=== PATIENT | female | born 1955 | race Caucasian/White ===

== ENCOUNTER 2020-10-28 00:19 | Outpatient (CLI) | payer MEDICARE, BC, SELFPAY ==
--- NOTE | 2020-10-28 07:30 | DI.US_ITS ---
EXAM: US THYROID CLINICAL HISTORY: annual exam,F/U THYROID NODULE,E04.1. TECHNIQUE: Ultrasound thyroid performed using standard protocol. COMPARISON: US [facility] US SOFT TISSUE HEAD/NECK from 06/12/2019 US [facility] US GUIDED NEEDLE PLACEMENT from 07/03/2019 FINDINGS: ISTHMUS: 2 mm RIGHT LOBE: Size: 4.7 x 1.6 by 2.7 cm Echogenicity: Heterogeneous with multiple nodules. Vascularity: Normal. Nodules: Peripherally calcified solid nodule in the mid right thyroid measuring 2.1 x 1.2 x 2.1 cm th is may have increased slightly from previous exam or could be secondary to measurement variation. Th is corresponds to a TI-RADS 5 lesion. At the lower pole there is a septated, complex cystic nodule measuring 1.8 x 1.4 x 1.7 cm which is no t well seen. It appears to have increased in size when compared with the previous exam. A spongifor m nodule is again noted at the superior pole. LEFT LOBE: Size: A 4.1 x 1.5 x 1.8 cm Echogenicity: Heterogeneous Vascularity: Normal. Nodules: Several calcifications. Small cystic areas. No suspicious nodules. OTHER FINDINGS: None. IMPRESSION: Multiple thyroid nodules. Direct comparison with previous exam is difficult since the patient was sc anned before comparison exams were available but it does appear that to the 2 largest nodules have i ncreased in size. Biopsy of the solid peripherally calcified nodule could be considered. DATA REPOSITORY:
--- NOTE | 2020-10-28 07:30 | DI.MAMMO_ITS ---
EXAM: MG MAMMO SCREENING CLINICAL HISTORY: screening,Z12.39 TECHNIQUE: Bilateral full field digital CC and MLO mammographic images were obtained with 3D tomosyn thesis and utilizing computer aided detection (CAD). COMPARISON: Available for comparison. FINDINGS: Masses/Architectural Distortion: None seen. Microcalcifications: No suspicious pleomorphic-type are seen. Skin Thickening/Nipple Retraction: None. IMPRESSION: 1. No significant interval change with no specific features of malignancy noted. 2. Unless there is more urgent need, screening mammography is recommended, as per [place] [employer] guidelines. BI-RADS Category 1 - Negative Breast Density - Category B - Scattered areas of fibroglandular density Breast density category C or D implies that the patient has dense breast tissue. Dense breast tissue is very common and is not abnormal but dense breast tissue can make it harder to find cancer on a ma mmogram. Also, dense breast tissue may increase their breast cancer risk. This information about the result of the mammogram report was provided to the patient to raise their awareness. Use this report when you speak with the patient about their risks for breast cancer, which includes their family hist ory. At that time, you may recommend for more screening tests (Ultrasound or MRI) as they might be us eful based on their risk. A negative radiographic report should not delay biopsy if a dominant or clinically suspicious mass is present. Up to ten percent of cancers are not identified on mammography. A negative report may reinforce clinical impression. Adenosis and dense breasts may obscure an underlying neoplasm. False positive reports average 6 to 10%. Patient will receive a letter notifying them of these results.
== END 2020-10-28 00:39 ==
PROVIDERS: PCP Internal Medicine; Visit Provider Internal Medicine
DX: E04.2 Nontoxic multinodular goiter (principal); Z12.31 Encounter for screening mammogram for malignant neoplasm of breast
CPT/HCPCS: 77063; 77067; 76536

== ENCOUNTER 2020-11-04 15:12 | Outpatient (CLI) | payer MEDICARE, BC, SELFPAY ==
--- NOTE | 2020-11-04 15:00 | DI.RAD_ITS ---
EXAM: XR TIB/FIB RT CLINICAL HISTORY: pain s/p fall. TECHNIQUE: 2D digital imaging was performed. COMPARISON: No exams were available for comparison FINDINGS: Is no evidence fracture nor osseous lesions. Mild degenerative changes are noted in the lateral comp artment of the knee. No ominous osseous lesions. No radiopaque foreign body. IMPRESSION: DATA REPOSITORY: RADIATION DOSE DELIVERED:
== END 2020-11-04 15:32 ==
PROVIDERS: PCP Internal Medicine; Referring Provider Internal Medicine; Visit Provider Student in an Organized Health Care Education/Training Program
DX: M79.604 Pain in right leg (principal); M17.11 Unilateral primary osteoarthritis, right knee; S80.11XA Contusion of right lower leg, initial encounter; W01.0XXA Fall on same level from slipping, tripping and stumbling without subsequent striking against object, initial encounter
CPT/HCPCS: 99203; 73590

== ENCOUNTER → 2020-12-02 08:35 | Outpatient (BNVA) | payer MEDICARE, BC, SELFPAY | PROVIDERS: PCP Internal Medicine; Referring Provider Internal Medicine; Visit Provider Student in an Organized Health Care Education/Training Program | DX: R69 Illness, unspecified (principal) ==

== ENCOUNTER → 2021-02-13 08:32 | Outpatient (BNVA) | payer MEDICARE, BC, SELFPAY | PROVIDERS: PCP Internal Medicine; Referring Provider Internal Medicine; Visit Provider Student in an Organized Health Care Education/Training Program | DX: S80.11XD Contusion of right lower leg, subsequent encounter (principal); M23.91 Unspecified internal derangement of right knee; X58.XXXD Exposure to other specified factors, subsequent encounter | CPT/HCPCS: 99441 ==

== ENCOUNTER 2021-03-06 01:01 | Outpatient (CLI) | payer MEDICARE, BC, SELFPAY ==
--- NOTE | 2021-03-06 07:45 | DI.MRI_ITS ---
Exam(s) MR LOWER JOINT RT WO EXAM: MR LOWER JOINT RT WO CLINICAL HISTORY: KNEE PAIN, INTERNAL DERANGEMENT RT KNEE, M23.91 TECHNIQUE: Multiplanar multisequence MRI of the knee was performed. COMPARISON: CR XR TIB/FIB RT from 11/04/2020 FINDINGS: EFFUSION: There is moderate-sized joint effusion. There is a thin bowen cyst in the medial popliteal fossa which measures 5 cm cephalocaudal length. No obvious loose intra-articular body. MARROW:There is no evidence of fracture, prominent bone contusion, nor ominous osseous lesions . PATELLOFEMORAL COMPARTMENT: The quadriceps tendon is intact. The patellar ligament is intact. There is thinning of the retropatellar cartilage over both facets. This is full-thickness thinning o [place] the mid-lateral facet above the a quite ower and there is subarticular signal abnormality in the posterior patella at this level but without a unstable osteochondral defect evident. No intraosseous signal to suggest recent patellar dislocation. No patellar retinacular tears. Media l collateral ligament is intact CRUCIATE LIGAMENTS: The anterior cruciate ligament is intact.The posterior cruciate ligament is intac t. MEDIAL COMPARTMENT/MEDIAL MENISCUS: There are no tears of the medial meniscus evident.. Multiple chondral defects over the weight-bearing surface of the medial femoral condyle noted. No di stinct osteochondral defects. No subarticular edema in the medial femoral condyle. No marginal oste ophytes. No degenerative subarticular cysts. MEDIAL COLLATERAL LIGAMENT: Intact LATERAL COMPARTMENT/LATERAL MENISCUS: There is an oblique tear of the anterior horn of the lateral me niscus. Mild meniscal extrusion. Adjacent edema in the para-articular lateral soft tissues.. There is no obvious tear of the posterior horn of the lateral meniscus.There is a small full-thickness cho ndral defect over the main weight-bearing surface measuring approximately 3 millimeters x 2 millimete rs. No subarticular edema. No osteochondral defect. No marginal osteophytes. ILIOTIBIAL BAND: Intact LATERAL COLLATERAL LIGAMENT COMPLEX: The fibular collateral ligament is intact. The biceps femoris t endon is intact.Popliteus muscle and tendon are intact. IMPRESSION: 1. There is a significant tear of the to horn of the lateral meniscus with an element of meniscal ext rusion and para meniscal fluid signal which appears slightly septated and may be an element of degene rative in meniscal cyst. [place] cartilage degenerative changes are seen over the lateral femoral c ondyle without un stable osteochondral defect nor subarticular edema. 2. There are no tears of the medial meniscus. However, there also degenerative changes in the [place] cartilage over the medial femoral condyle. No osteochondral defect. 3. There are no tears of the cruciate and collateral ligaments. Iliotibial band is also intact. 4. Advanced chondromalacia patella findings, with most advanced retropatellar cartilage thinning bein g just above the equator at the mid-lateral facet level. At this level is also subarticular degenera tive signal in the posterior patella. 5. There is a small knee joint effusion. There is a thin 5 cm length Bowen cyst in the medial popli teal fossa DATA REPOSITORY:
== END 2021-03-06 01:21 ==
PROVIDERS: PCP Internal Medicine; Visit Provider Student in an Organized Health Care Education/Training Program
DX: M25.561 Pain in right knee (principal); M23.91 Unspecified internal derangement of right knee; M25.461 Effusion, right knee; M71.21 Synovial cyst of popliteal space [Baker], right knee; S83.281A Other tear of lateral meniscus, current injury, right knee, initial encounter; M22.41 Chondromalacia patellae, right knee
CPT/HCPCS: 73721

== ENCOUNTER 2021-03-17 03:00 | Outpatient (CLI) | payer MEDICARE, BC, SELFPAY ==
[2021-03-18 17:57] LABS: COVID-19 RT-PCR UVMMC Result Negative (Negative)
== END 2021-03-17 03:01 | disposition home or self-care (01) ==
LOC: LBO 03:01
PROVIDERS: Nurse Practitioner Family; PCP Internal Medicine; Visit Provider Internal Medicine
DX: Z20.822 Contact with and (suspected) exposure to COVID-19 (principal)
CPT/HCPCS: U0003; U0005

== ENCOUNTER → 2021-04-17 08:54 | Outpatient (BNVA) | payer MEDICARE, BC, SELFPAY | PROVIDERS: PCP Internal Medicine; Referring Provider Internal Medicine; Visit Provider Student in an Organized Health Care Education/Training Program | DX: Z01.818 Encounter for other preprocedural examination (principal); S83.281D Other tear of lateral meniscus, current injury, right knee, subsequent encounter; M23.91 Unspecified internal derangement of right knee; X58.XXXD Exposure to other specified factors, subsequent encounter ==

== ENCOUNTER 2021-04-21 02:20 | Outpatient (CLI) | payer MEDICARE, BC, SELFPAY ==
[2021-04-21 11:37] LABS: Source Nasal/Nares
[2021-04-21 17:56] LABS: COVID-19 PCR Negative (Negative)
== END 2021-04-21 02:21 | disposition home or self-care (01) ==
LOC: LBO 02:20
PROVIDERS: PCP Internal Medicine; Visit Provider Student in an Organized Health Care Education/Training Program
DX: Z20.822 Contact with and (suspected) exposure to COVID-19 (principal); Z01.818 Encounter for other preprocedural examination
CPT/HCPCS: 87635

== ENCOUNTER 2021-04-23 07:42 | Day surgery (SDC) | payer MEDICARE, BC, SELFPAY ==
[2021-04-23] VITALS (8 sets, daily range): BP systolic 85–140; BP diastolic 54–86; PULSE 57–81; RESP 13–21; TEMP 36.2–36.8; TEMPC 36.4; O2SAT 96–99; BMI 30.4
--- NOTE | 2021-04-23 08:17 | W.ANESPRE ---
General Info Date of Service Date Performed: 04/23/21 Height: 5 ft 2.5 in Weight: 76.7 kg Body Mass Index (BMI): 30.4 Surgical Procedure: Operation Date: 04/23/21 10:40 Proposed Procedures Side Surgeon p Knee Arthroscopy Right Darvin Miller MD Meds Allergies and Home Medications Allergies Allergy/AdvReac Type Severity Reaction Status Date / Time NSAIDS (Non-Steroidal AdvReac Other (See Unverified 04/22/21 09:55 Anti-Inflamma Comment) Home Medication Medication Instructions Recorded calcium carbonate 500 mg calcium 500 mg PO DAILY 09/17/20 (1,250 mg) tablet latanoprost 0.005 % eye drops 1 drp OPHTHALMIC (EYE) DAILY 09/17/20 [id number] acid 0.4 1 tab PO DAILY 09/17/20 mg-lycopene 300 mcg-lutein 250 mcg tablet albuterol sulfate 90 mcg/actuation 1 puff INHALATION ONCE PRN 09/24/20 aerosol inhaler triamcinolone acetonide 0.1 % 1 applic TOPICAL DAILY PRN 09/24/20 topical cream cholecalciferol (vitamin D3) 50 50 mcg PO DAILY 11/04/20 mcg (2,000 unit) tablet vitamin E 200 unit capsule 200 unit PO DAILY 11/04/20 Current Visit Medications: Current Medications Generic Name Dose Route Start Last Admin Trade Name Freq PRN Reason Stop Dose Admin Ringer's Solution 1,000 mls @ 80 mls/hr 04/23/21 06:00 IV 05/22/21 23:59 INFUSION LITZY Cefazolin Sodium/Dextrose 2 gm in 50 mls @ 100 mls/hr 04/23/21 06:00 Ancef Duplex IVPB 05/22/21 23:59 PREOP LITZY IV Miscellaneous Supplies 1 each 04/23/21 06:00 Iv Access IV 05/22/21 23:59 DIRECTED LITZY Sodium Chloride 0 ml 04/23/21 06:00 Normal Saline Flush 10 Ml Syr IV 05/22/21 23:59 PRN PRN Sodium Chloride 0 ml 04/23/21 06:00 Normal Saline 10 Ml Vial IJ 05/22/21 23:59 DIRECTED PRN Sterile Water 0 ml 04/23/21 06:00 Water,Injection,Sterile 10 Ml Vial IJ 05/22/21 23:59 DIRECTED PRN PFSH Active Problems Active Problems: Problem Status Onset Code Tear of lateral meniscus of right knee, current S83.281A Internal derangement of right knee M23.91 Contusion of right tibia S80.11XA Pain, lower extremity M79.606 Smoker F17.200 Goiter E04.9 Glaucoma H40.9 Right thyroid nodule E04.1 PTSD (post-traumatic stress disorder) F43.10 Medical History Medical History PTSD (post-traumatic stress disorder) Right thyroid nodule Surgical History Surgical History H/O tubal ligation 1979 at [facility] History of carpal tunnel release 2003 & 2004 History of cholecystectomy (~2001) Tobacco Smoking/Tobacco Use Status: Current every day Tobacco Type: cigarettes Alcohol Alcohol Intake: never Substance Use Substance use: Never Substance use type: does not use Vital Signs and Lab Results Vital Signs Most Recent Vital Signs in EMR: Most Recent Vital Signs Temp Pulse Resp BP Pulse Ox 36.2 C L 81 16 140/77 98 04/23/21 08:01 04/23/21 08:01 04/23/21 08:01 04/23/21 08:01 04/23/21 08:01 Lab Results Blood Type / Crossmatch: No Data to Display Complete Blood Count: No Data to Display Complete Metabolic Panel: No Data to Display Liver Function Panel: No Data to Display Coagulation Panel: No Data to Display Cardiac Panel: No Data to Display Arterial Blood Gas: No Data to Display Venous Blood Gas: No Data to Display Pancreas Panel: No Data to Display Thyroid Panel: No Data to Display Infectious Disease: Coronavirus (COVID-19)(PCR) Negative (Negative) 04/21/21 08:30 04/21/21 Coronavirus 2019 Source Nasal/nares 04/21/21 08:30 04/21/21 Blood Cultures: No Data to Display Toxicology Panel: No Data to Display Anesthesia Assessment and Plan Anesthesia History Personal History: No History of Anesthesia Complications Family History: No Family History of Anesthesia Complications Exercise Tolerance Exercise Tolerance: Metabolic Equivalents>4 Pertinent Negatives Pertinent Negatives: No Symptoms of GERD, No Major Cardiovascular Symptoms or Complaints and No Major Pulmonary Symptoms or Complaints Cardiac & Pulmonary Exam Cardiac Exam: Normal S1/S2 Heart Sounds Pulmonary Exam: Clear Bilateral Breath Sounds Airway Exam Known Difficult Airway: No Mallampati Class: 2 Mouth Opening: Normal (> 3cm) Thyromental Distance: Greater than 3 cm Neck Range of Motion: Full ROM Neck Circumference: Normal Teeth Condition: Normal Dentition ASA Classification ASA Score: ASA 2 Emergency Case?: No NPO Status NPO Status: NPO Clears >2 hours, Solids >8 hours Anesthesia Plan Resuscitation Status: Full Code Anesthesia Technique: Spinal Anesthesia Airway Planned: Natural Airway Monitors Used: Standard Monitors
[2021-04-23] MEDS: Lactated Ringers 1,000 ML 80 ML IV (08:20)
[2021-04-23] MEDS: ceFAZolin 2 GM/50 ML BAG IVPB (09:11)
--- NOTE | 2021-04-23 09:31 | W.PM.DSUDISC ---
Discharge Plan Disposition Patient Disposition: HOME Condition: Good Discharge Details Reason For Visit: (R) KNEE LATERAL MENISCUS TEAR Attending Provider: Darvin Miller Primary Care Provider: Neeta Knott Home Meds and New Rx's Prescriptions: New acetaminophen 500 mg capsule 1,000 mg PO Q8H PRN PRNQty: 90 RF: 0 hydrocodone-acetaminophen 5-325 mg tablet 1 tab PO Q6H PRN (Reason: pain) Qty: 6 RF: 0 ibuprofen 600 mg tablet 600 mg PO TID PRN (Reason: pain) Qty: 30 RF: 0 Continued triamcinolone acetonide 0.1 % cream 1 applic topical DAILY PRNRF: 0 albuterol sulfate [Ventolin HFA] 90 mcg/actuation HFA aerosol inhaler 1 puff inhalation ONCE PRNRF: 0 cholecalciferol (vitamin D3) 50 mcg (2,000 unit) tablet 50 mcg PO DAILY RF: 0 vitamin E 200 unit capsule 200 unit PO DAILY RF: 0 latanoprost 0.005 % drops 1 drp ophthalmic (eye) DAILY RF: 0 calcium carbonate [Calcium 500] 500 mg calcium (1,250 mg) tablet 500 mg PO DAILY RF: 0 Centrum Silver 0.4-300-250 mg-mcg-mcg tablet 1 tab PO DAILY RF: 0 Discharge Instructions Stand Alone Forms: [facility] Knee Arthroscopy Referrals: Darvin Miller MD [ [facility] STAFF PHYSICIAN] - Equipment/Supplies: Partial Weight Bearing Crutches Activity:: Activity as Tolerated Remove Dressings/Wound Care:: 72 hours Shower/Bathe:: 72 hours Diet:: As Tolerated Discharge Orders Discharge Orders: Discharge Order (Routine); Ordered 04/23/21 Ordered By: Jamil Snyder DS: Diagnosis Discharge Diagnosis (1) Tear of lateral meniscus of right knee, current: Status: Acute
[2021-04-23] MEDS: Bupivacaine 0.5% Pres-Free 30 ML VIAL (10:00)
--- NOTE | 2021-04-23 10:52 | W.ANESPOSTOP ---
Postoperative Evaluation Date, Time and Location Date Performed: 04/23/21 Time Performed: 10:52 Patient Location: PACU Vital Signs Most Recent Imported Vital Signs: Most Recent Vital Signs Temp Pulse Resp BP Pulse Ox 36.3 C L 57 L 13 130/62 98 04/23/21 10:34 04/23/21 10:34 04/23/21 10:34 04/23/21 10:34 04/23/21 10:34 Pain Score Most Recent Pain Score: Most Recent Pain Score Pain Level 0 04/23/21 10:34 Assessment Mental Status: Awake (Alert & Oriented to Patient Baseline) Airway and Respiratory Function: Patent airway with normal (patient baseline) respiratory exam Cardiovascular Function: Hemodynamically Stable Hydration Status: Adequately Hydrated Nausea & Vomiting: No Nausea or Vomiting Pain: Pt. Denies Any Pain Peripheral Nerve Block: Regional nerve block not resolved at time of post operative discharge
[2021-04-23] MEDS: Acetaminophen 325 MG TAB 650 MG PO (11:44)
--- NOTE | 2021-04-23 11:53 | PT.INIE ---
Date of service: 04/22/21 PT Notes Visit Reasons: (R) KNEE LATERAL MENISCUS TEAR Physical Therapy Day Surgery Initial Evaluation Date: 04/24/2021 Referring Doctor: DAVID Perez PT Orders: PT CONSULT: Crutch training Precautions: PWB with RASHID. Patient Profile/Admitting Diagnosis: Carina is a 65-year-old female with right lateral meniscus tear and internal derangement of right knee and is status post right knee arthroscopic partial lateral meniscectomy on postoperative day 0. Patient requires gait training as she has 16 steps to get into her house and has a goal of walking 2-3 blocks from where she lives to her workplace. PMHX: Medical History (Updated 04/01/21 @ 06:40 by Darvin Miller MD) PTSD (post-traumatic stress disorder) Right thyroid nodule Surgical History (Updated 09/17/20 @ 15:51 by Jesika Briones LPN) H/O tubal ligation 1979 at [facility] History of carpal tunnel release 2003 & 2004 History of cholecystectomy (~2001) Social History/Home Situation: Lives alone in a private home with 16 steps to enter with a rail on the left side going up. Equipment Owned/DME: None Subjective: States that she feels okay and is ready to try out the crutches. She hopes to eventually walk to and from work with a distance of about three blocks. Objective: General Observation: Surggical dressing on R knee. Mental Status: A and O x 4 Pain: 1-2/10 at rest, 2-3/10 with WB ROM: Right Lower Extremity: Hip flexion WFL. Hip abduction WFL. Knee flexion 20 degrees to 80 degrees. Strength: Right Lower Extremity: Hip flexors 4-/5. Hip abductors 4-/5. Knee flexors 3-/5. Knee extensors 3-/5. Ankle dorsiflexors 4/5. Ankle plantarflexors 4/5. Sensation: Intact as to pain sensation Bed Mobility/Transfers: Stand to sit independent Bed to chair independent Gait: Patient was guided through level surface ambulation of 150 feet using three-point gait pattern with bilateral axillary crutches with increase in report of pain to 2-3/10 pain that resolved with rest. Stairs: Trained with negotiating up and down twelve [id number] while holding onto 1 rail and 1 crutch with step-to gait pattern with increased report of pain to 2?3/10. Balance: Static Sitting: Normal Dynamic Sitting: Normal Static Standing: Fair Dynamic Standing: Fair Special Tests: Mobility Limitations Standardized Measure [facility] AM-PAC 6 clicks Basic Mobility Inpatient Short Form: Raw Score: 23 CMS Score: 11% deficit Informed Consent/Education: Patient instructed in purpose of PT consult. Assessment: Carina will benefit from the use of bilateral axillary crutches in order to maximize independence and reduce fall risk at home and at work. She was instrcuted on level surface ambulation and stair negotiation as ordered. Patient is assessed as a 67165 low complexity based on the following: History: 65-year-old female with impairment level findings, functional limitations, and past medical history as indicated above Examination: Demonstrable impairment in strength, balance, and mobility level with underlying impairments and functional limitations as documented above Presentation: Stable Decision Makin low complexity Goals: N/A. PT evaluation and 1 treatment sessions only for functional mobility training using recommended AD and for HEP instruction. Plan of Care/Treatment Plan: N/A. PT evaluation and 1 treatment session only for functional mobility training using recommended AD and for HEP instruction. DISCHARGE RECOMMENDATIONS: Home when medically cleared by orthopedic surgeon. Patient has been provided, fitted, and trained with bilateral axillary cructches for this session. TREATMENT CODE/TIME: 64302 x 20 minutes beginning at 12:53 PM. Thank you for the opportunity to participate in the care of this patient. Caron Bravo PT, DPT, CLT [facility] [place], [place]
--- NOTE | 2021-04-23 11:58 | W.PM.OP ---
Date of service: 04/23/21 Time of Service: 10:27 Operative Note Operative Note DATE OF PROCEDURE: 04/23/21 PRE-OP DIAGNOSIS: Right Knee Lateral Meniscus Tear POST-OP DIAGNOSIS: same Right Knee Lateral Compartment Chondromalacia PROCEDURE: Right Knee Arthroscopic Partial Lateral Menisectomy SURGEON: Darvin Miller Refer to Anesthesia Record ESTIMATED BLOOD LOSS: 0 PATHOLOGY: none sent TOURNIQUET TIME: 0 COMPLICATIONS: None Patient was transported to: PACU Patient's condition: stable Indications: I have seen Kindra in clinic for symptoms of a meniscus tear. This was confirmed based on MRI and exam findings. Nonoperative measures were exhausted but disability and pain persisted. I discussed knee arthroscopy with meniscal intervention with the patient. I reviewed the risks of the procedure to include, but not limited to, bleeding, infection, pain, stiffness, damage to nerves or vessels, recurrence, blood clot. Despite these risks, the patient elected to proceed. Findings: A diagnostic arthroscopy was performed with the following findings: Suprapatellar Pouch: Mild inflammatory changes, No loose bodies Medial Compartment: No meniscal tear, Intact meniscal root, No significant chondromalacia or signs of arthritis, No loose bodies Notch: ACL and PCL were intact Lateral Compartment: Complex tear throughout the meniscus, Intact meniscal root although partial tear extended into it, Grade IV chondromalacia of the distal femur (6x10mm) and Grade II chondromalacia of the tibia diffusely, No loose bodies Patellofemoral Compartment: Grade I chondromalacia, No apparent patellar maltracking Procedure Description: Kindra was greeted in the preoperative holding area where the correct side was identified and marked. The consent was reviewed with the patient and signed. The history and physical was updated. All questions were answered. Kindra was taken back to the operating room. The patient was placed into the supine position on the operating room table. A nonsterile tourniquet was placed high onto the leg but not used. All bony prominences were well padded. Prophylactic antibiotics in the form of Cefazolin were administered. The right leg was then prepped with Chloraprep and draped in a standard fashion with stockinette and extremity drape. A timeout to confirm correct identity, side and site, procedure, allergies, anesthesia, and medical concerns was performed. The leg was placed into a pneumatic leg kyle, [id number]. A standard lateral portal was made at the lateral border of the patella tendon in line with the inferior pole of the patella, soft spot. The skin and deep tissue was incised sharply and the blunt trochar was inserted atraumatically. A diagnostic arthroscopy was performed and the findings are listed above. The suprapatellar pouch had moderate inflammatory changes. The patellofemoral articulation showed GradeI chondromalacia as well as good tracking. The lateral gutter had no loose bodies and the medial gutter had no loose bodies. The knee was brought into some valgus stress in extension to open the medial compartment. A medial portal was made, localized by a spinal needle. The portal was created with an #11 blade through skin and capsule under direct visualization avoiding any meniscal injury. A probe was then inserted into the medial compartment. The medial compartment was fully inspected. The chondral surface of the tibia showed no significant chondromalacia and the surface of the femur showed no significant chondromalacia. The medial meniscus had no meniscal tear. The notch was then inspected which showed an intact ACL and an intact PCL. The leg was then brought into a figure of 4 position. The lateral compartment was fully inspected with the arthroscope and a probe. The chondral surface of the lateral femur showed a large area of Grade IV chondromalacia over the distal femur, at least 6x10mm over the distal most extent of the central lateral femur. The chondral surface of the lateral tibia showed Grade II chondromalacia with some areas of more thinning. The lateral meniscus had tearing throughout almost the entirety of the meniscus. There was a complex tear at the level of the anterior horn with intact fibers attaching to the anterior root. There is some complex tearing through the posterior horn with degenerative meniscal tissue. Additionally, there was some complex tearing seen extending from the horn into the root although the root was still intact. After evaluation, the meniscus was debrided down to a stable base using a series of biters and arthroscopic marsha. It was probed afterwards to confirm that the tear had been removed and the meniscus was stable. Cartilage surfaces were debrided of any flaps, leaving any intact fibers. The arthroscope was brought back into the suprapatellar pouch and the leg was in full extension. The knee was thoroughly irrigated with the arthroscopic fluid on high flow and pressure. Inflow was stopped and excess fluid was removed. The wounds were closed with 4-0 Nylon. They were dressed with Xeroform, 4x4 gauze, ABD pad, Kerlix and an MOE wrap. A cryo-cuff was applied. The patient tolerated the procedure well and was returned to the Same Day Surgery area in a stable condition suffering no known complication.
--- NOTE | 2021-04-23 13:04 | W.ANESPOSTOP ---
Postoperative Evaluation Date, Time and Location Date Performed: 04/23/21 Time Performed: 13:04 Patient Location: Day Surgery Unit Vital Signs Most Recent Imported Vital Signs: Temp Pulse Resp BP Pulse Ox 36.4 C L 61 16 135/66 98 04/23/21 11:23 04/23/21 11:23 04/23/21 11:23 04/23/21 11:23 04/23/21 11:23 Most Recent Manually Entered Vital Signs: Adult Blood Pressure: 135/66 Heart Rate: 61 Respirations: 16 Oxygen Saturation (%): 98 Temperature (C): 36.4 C Pain Score (0-10 Scale): 3 Pain Score Most Recent Pain Score: Most Recent Pain Score Pain Level 0 04/23/21 11:23 Assessment Mental Status: Awake (Alert & Oriented to Patient Baseline) Airway and Respiratory Function: Patent airway with normal (patient baseline) respiratory exam Cardiovascular Function: Hemodynamically Stable Hydration Status: Adequately Hydrated Nausea & Vomiting: No Nausea or Vomiting Pain: Pain is tolerable/mild (<5/10) Peripheral Nerve Block: Patient did not receive a nerve block
== END 2021-04-23 13:23 | disposition home or self-care (01) ==
PROVIDERS: PCP Internal Medicine; Visit Provider Student in an Organized Health Care Education/Training Program
PROC: (CPT 29870; principal; 2021-04-23 10:30)
DX: S83.281A Other tear of lateral meniscus, current injury, right knee, initial encounter (principal); M94.261 Chondromalacia, right knee
CPT/HCPCS: 29881; 97161; J0690; J2405

== ENCOUNTER → 2021-06-02 08:33 | Outpatient (BNVA) | payer MEDICARE, BC, SELFPAY | PROVIDERS: PCP Internal Medicine; Referring Provider Internal Medicine; Visit Provider Student in an Organized Health Care Education/Training Program | DX: Z47.89 Encounter for other orthopedic aftercare (principal) ==

== ENCOUNTER 2021-12-02 08:32 | Emergency (ER) | payer MEDICARE, BC, SELFPAY ==
[2021-12-02 08:59] VITALS: BP 143/66; PULSE 84; RESP 18; TEMP 36.5; O2SAT 99
[2021-12-02 09:41] LABS: Abs Immature Grans 0.04 10^3/uL (0.0-0.06); Absolute Basophil Count 0.03 10^3/uL (0.0-0.2); Basophils % 0.2; Eosinophils % 0.5; HGB 13.9 g/dL (11.2-15.7); Immature Grans % 0.3; Lymphocytes % 5.9; MCH 29.7 pg (27.0-33.0); MCHC 32.3 % (32.0-36.0); MCV 91.9 fL (80-95); Monocytes % 3.8; Neutrophils % 89.3; Nucleated RBC 0 %; Platelet Count 275 10^3/uL (130-400); RBC 4.68 10^6/uL (3.93-5.22); RDW 13.2 % (11.7-14.6); RDW-SD 44.9 fL; WBC 13.13 10^3/uL (4.4-10.8)
[2021-12-02 09:44] LABS: Absolute Eosinophil Count 0.07 10^3/uL (0.0-0.7); Absolute Lymphocyte Count 0.77 10^3/uL (1.2-3.4); Absolute Neutrophil Count 11.73 10^3/uL (1.2-6.7)
--- NOTE | 2021-12-02 09:52 | W.ED.GENAD ---
Discharge Plan Disposition Patient Disposition: HOME Condition: Stable Discharge Details Clinical Impression: Kidney stone on right side Primary Care Provider: Neeta Knott ED Provider: Rex Porter Home Meds and New Rx's Prescriptions: New tamsulosin [Flomax] 0.4 mg capsule 0.4 mg PO DAILY Qty: 5 RF: 0 Continued triamcinolone acetonide 0.1 % cream 1 applic topical DAILY PRNRF: 0 albuterol sulfate [Ventolin HFA] 90 mcg/actuation HFA aerosol inhaler 1 puff inhalation ONCE PRNRF: 0 cholecalciferol (vitamin D3) 50 mcg (2,000 unit) tablet 50 mcg PO DAILY RF: 0 vitamin E 200 unit capsule 200 unit PO DAILY RF: 0 latanoprost 0.005 % drops 1 drp ophthalmic (eye) DAILY RF: 0 calcium carbonate [Calcium 500] 500 mg calcium (1,250 mg) tablet 500 mg PO DAILY RF: 0 Centrum Silver 0.4-300-250 mg-mcg-mcg tablet 1 tab PO DAILY RF: 0 zinc 15 mg Tablet 15 mg PO DAILY RF: 0 acetaminophen 500 mg capsule 1,000 mg PO Q8H PRN PRNQty: 90 RF: 0 ibuprofen 600 mg tablet 600 mg PO TID PRN (Reason: pain) Qty: 30 RF: 0 Discharge Instructions Instructions: Kidney Stones (ED) Additional Instructions: Your CT reveals a right-sided 4 mm kidney stone. Plenty of fluids to help avoid dehydration a passed stone. Flomax as directed. [id number] Tylenol and/or Motrin as directed for discomfort. Please watch for new or worsening symptoms and return to the ER for any concerns. Lastly, I have placed you on the urology list, please contact their office later today or tomorrow to discuss your visit need for outpatient reevaluation. Referrals: Chase Baca MD [ [facility] STAFF PHYSICIAN] - Medical Decision Making 65-year-old female reports noticing hematuria over the past 24 hours, this morning had sudden sharp right flank discomfort which is since resolved. It was associate with nausea but no vomiting. Clinically she appears well, nontoxic and is again asymptomatic at this time. She does not require any analgesia or antiemetic. Plan is to obtain IV access, CBC, CMP, lipase, urinalysis, give 1 L IV fluid, and likely obtain a renal colic CT based upon her laboratory values and urinalysis. Patient is comfortable with this plan and has no additional questions or concerns. Laboratory values reveal mild but nonspecific leukocytosis of 13.13. Creatinine 0.9 with a GFR greater than 60. Electrolytes unremarkable, lipase 122. Urine reveals large blood, 10-20 red cells Discussed labs with patient. She remains asymptomatic. Plan is to obtain CT imaging CT imaging reveals a 4 mm right UPJ stone causing mild hydronephrosis. Discussed CT findings with patient. She remains asymptomatic. Plan is to provide a prescription for Flomax, encourage adequate hydration, [id number] Tylenol and/or Motrin, and I will place her on the urology list to help expedite outpatient care. Standard discharge and return precautions provided. Patient will contact the urology team after today or tomorrow This documentation was generated using [employer] system, please disregard any oddities of phrase or misspellings. Medical Records Medical records reviewed: Yes I reviewed the patient's medical records. Imaging Data Radiologic Study: Attestation: I personally reviewed and interpreted this imaging study as follows: Imaging: CT Scan Radiologist's impression: CT RENAL COLIC WO EXAM: CT RENAL COLIC WO CLINICAL HISTORY: Right flank pain, hematuria. TECHNIQUE: Imaging Protocol: Axial computed tomography images with coronal and sagittal reformatted images were created and reviewed. COMPARISON: No exams were available for comparison FINDINGS: ABDOMEN: Lung Bases: Normal where visualized. Small hiatal hernia. Liver: Normal density. No measurable mass. Gallbladder and biliary tract: Status post cholecystectomy. No significant biliary ductal dilatation. Pancreas: Normal density, no abnormal calcifications or inflammatory process. Spleen: Normal. Kidneys: Normal size, contour and axis.There is a 4 mm stone at the right ureteropelvic junction causing mild hydronephrosis. Bilateral nephrolithiasis. No masses seen. Adrenal glands: Hypodense nodularity of both adrenal glands is noted. These likely reflect adenomas. The nodule on the right measures 7 mm. The nodularity on the left measures up to 8 mm. No follow-up is recommended. Lymph nodes: Within normal limits. Abdominal Aorta: Abdominal portion non-dilated. Atherosclerosis. PELVIS: Bladder:Symmetric distention, no gross wall thickening. Bowel: No obstruction or bowel wall thickening. Appendix is unremarkable. There is diverticulosis seen in the colon, but no evidence of acute diverticulitis. Peritoneal cavity: No ascites, collection or mesenteric inflammatory response. No free air. Reproductive organs: Within normal limits. Bones: Within normal limits. Soft Tissues: Within normal limits. IMPRESSION: 1. 4 mm right UPJ stone causing mild hydronephrosis. 2. Bilateral nephrolithiasis. 3. Results of this exam have been verbally communicated with provider. Lab Data Lab results reviewed: Yes I reviewed the patient's lab results. Labs: Laboratory Tests Range/Units 12/02/21 12/02/21 12/02/21 09:10 09:10 10:18 WBC (4.4-10.8) 10^3/uL 13.13 H RBC (3.93-5.22) 10^6/uL 4.68 Hgb (11.2-15.7) g/dL 13.9 Hct (36.0-46.0) % 43.0 MCV (80-95) fL 91.9 MCH (27.0-33.0) pg 29.7 MCHC (32.0-36.0) % 32.3 RDW (11.7-14.6) % 13.2 Plt Count (130-400) 10^3/uL 275 MPV (8.0-11.0) fL 10.0 Immature Gran % 0.3 Neutrophils % 89.3 Lymphocytes % 5.9 Monocytes % 3.8 Eosinophils % 0.5 Basophils % 0.2 Nucleated RBC % % 0 Absolute Neutrophils (1.2-6.7) 10^3/uL 11.73 H Absolute Lymphocytes (1.2-3.4) 10^3/uL 0.77 L Absolute Monocytes (0.1-0.8) 10^3/uL 0.50 Absolute Eosinophils (0.0-0.7) 10^3/uL 0.07 Absolute Basophils (0.0-0.2) 10^3/uL 0.03 Sodium (136-145) mmol/L 139 Potassium (3.5-5.1) mmol/L 4.2 Chloride (98-107) mmol/L 104 Carbon Dioxide (21.0-32.0) mmol/L 26.2 Anion Gap (3-11) mmol/L 8.8 BUN (7-18) mg/dL 16 Creatinine (0.55-1.02) mg/dL 0.9 Estimated GFR/1.73 m2 (mL/min/1.73m2) >= 60.00 Glucose (74-106) mg/dL 128 H Calcium (8.5-10.1) mg/dL 9.0 Total Bilirubin (0.2-1.0) mg/dL 0.4 AST (15-37) U/L 19 ALT (14-59) U/L 12 L Alkaline Phosphatase (46-116) U/L 101 Total Protein (6.4-8.2) g/dL 7.2 Albumin (3.4-5.0) g/dL 3.6 Lipase (73-393) U/L 122 Urine Color (Yellow) Yellow Urine Clarity (Clear) Clear Urine pH (5-8) 7.0 Ur Specific [place] (1.005-1.025) 1.015 Urine Protein (Negative) mg/dL Negative Urine Ketones (Negative) mg/dL Negative Urine Blood (Negative) Large H Urine Nitrite (Negative) Negative Urine Bilirubin (Negative) Negative Urine Urobilinogen (Up TO 0.2) EU/dL 0.2 Ur Leukocyte Esterase (Negative) Negative Urine RBC (0-2) HPF 10-20 H Urine WBC (0-5) HPF 0-2 Ur Epithelial Cells (Negative) HPF Rare Urine Crystals (Negative) HPF Negative Urine Bacteria (Negative) HPF Negative Urine Casts (Negative) LPF Negative Urine Mucus (Negative) Negative Ur Culture Indicated? No Urine Glucose (Negative) mg/dL Negative HPI General Mode of arrival: ambulatory. Date/Time Provider Initiated Documentation: 12/02/21 09:04. Limitations to Documentation: no limitations. Information obtained by: patient. HPI Narrative: This is a 65-year-old female who reports that she is relatively healthy, has a history of kidney stones over 20 years ago, presents to the ER today reporting sudden right flank and lower abdominal pain that began around 615 this morning, associated with nausea, but no vomiting. She states that subsequently since coming to the ER she is now pain-free. She recalls this being very similar to her kidney stones previous. She denies recent illness or trauma, fever, chest pain, shortness of breath. She does admit to mild hematuria but denies any dysuria, vaginal bleeding, diarrhea. Reports that she had more chocolate than usual last week and had mild constipation but is still moving her bowels. She has not taken any medication for her symptoms. When the pain was present it was sharp and moderate to severe but again resolved now. Related Data Home Medications Medication Instructions Recorded Confirmed calcium carbonate 500 mg calcium 500 mg PO DAILY 09/17/20 07/09/21 (1,250 mg) tablet latanoprost 0.005 % eye drops 1 drp OPHTHALMIC (EYE) DAILY 09/17/20 07/09/21 gyknxmiz-dml-kaokw acid 0.4 1 tab PO DAILY 09/17/20 07/09/21 mg-lycopene 300 mcg-lutein 250 mcg tablet albuterol sulfate 90 mcg/actuation 1 puff INHALATION ONCE PRN 09/24/20 07/09/21 aerosol inhaler triamcinolone acetonide 0.1 % 1 applic TOPICAL DAILY PRN 09/24/20 07/09/21 topical cream cholecalciferol (vitamin D3) 50 50 mcg PO DAILY 11/04/20 07/09/21 mcg (2,000 unit) tablet vitamin E 200 unit capsule 200 unit PO DAILY 11/04/20 07/09/21 acetaminophen 1,000 mg PO Q8H PRN PRN #90 cap 04/23/21 07/09/21 ibuprofen 600 mg PO TID PRN #30 tab 04/23/21 07/09/21 tamsulosin [Flomax] 0.4 mg PO DAILY #5 cap 12/02/21 zinc 15 mg PO DAILY 12/02/21 12/02/21 Previous Rx's Medication Instructions Recorded acetaminophen 1,000 mg PO Q8H PRN PRN #90 cap 04/23/21 ibuprofen 600 mg PO TID PRN #30 tab 04/23/21 tamsulosin [Flomax] 0.4 mg PO DAILY #5 cap 12/02/21 Allergies Allergy/AdvReac Type Severity Reaction Status Date / Time diclofenac AdvReac Severe Other (See Verified 10/07/21 15:23 Comment) General Stated Complaint: Abd Prob GÓMEZ: 3 Review of Systems Constitutional Constitutional: Denies fever(s) and Denies headache(s) ENT Ears, Nose, Mouth, and Throat: Denies headache(s) Cardiovascular Cardiovascular: Denies chest pain and Denies dyspnea Respiratory Respiratory: Denies cough and Denies dyspnea Gastrointestinal Gastrointestinal: Reports abdominal pain, Reports constipation, Denies diarrhea, Reports nausea and Denies vomiting Genitourinary Genitourinary: Reports hematuria and Denies dysuria Musculoskeletal Musculoskeletal: Denies back pain Integumentary/Breasts Skin/Breast: Denies rash Neurologic Neurologic: Denies headache(s) PFSH All Active Problems (Updated 12/02/21 @ 12:42 by DAVID Valderrama) Kidney stone on right side (Acute) Family history of melanoma (Acute) Tear of lateral meniscus of right knee, current (Acute) S/P Arthroscopy: 04/23/2021 Internal derangement of right knee (Acute) Contusion of right tibia (Acute) Pain, lower extremity (Acute) Smoker (Acute) Goiter (Chronic) Glaucoma (Chronic) Right thyroid nodule (Acute) PTSD (post-traumatic stress disorder) (Acute) Surgical History H/O tubal ligation 1979 at [facility] History of carpal tunnel release 2003 & 2004 History of cholecystectomy (~2001) Family History Aunt Breast cancer Aunt Colon cancer Aunt Breast cancer Brother Diabetes Brother Diabetes Sister Diabetes Father Heart disease Daughter Heart disease Social History Smoking/Tobacco Use Status: Current every day Tobacco Type: cigarettes Smoking risk assessment performed?: Yes Alcohol Intake: never Drug use: Never Substance use type: does not use Adopted: No Caregiver/Support person: No Foster care: No Housing: apartment Number of Children: 2 Do you need help understanding health information?: Rarely 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, [employer] Sexually active: No Do you think of yourself as: straight/heterosexual Current gender identity: female What is your relationship status?: Panel score (0-1 are the most socially isolated patients): 0 What type of physical activity do you participate in: none Seatbelt use: always Drive intox or ride w/intox hazmat cdl driver: No Working smoke detector in home: Yes Fire extinguisher in home: Yes Carbon monox detector in home: Yes Do you feel safe at home: Yes Do you feel safe in your relationship?: Yes Additional Social history: lives alone Exam Const General: cooperative, healthy appearing, comfortable and no acute distress Orientation: alert and awake HENMT Head: normal to inspection, normocephalic and atraumatic Eyes General: appearance normal, both eyes and all related structures Conjunctivae: conjunctivae normal Neck Neck: normal visual inspection, trachea midline and supple Resp Effort & Inspection: normal respiratory effort and able to speak in complete sentences Auscultation: clear to auscultation bilaterally Cardio Rate: regular rate Rhythm: regular rhythm GI Inspection: normal to inspection Palpation: soft, not firm, no guarding, no pulsatile masses and nontender Auscultation: normal bowel sounds Back/Spine/Pelvis Back: No back tenderness Skin General skin exam: no rashes or lesions noted Neuro General: patient alert, patient awake, patient oriented x3, moves all extremities and no focal motor deficits Cognition: normal cognition Speech: speech normal Gait: normal gait Sensory Exam: no sensory deficits noted Psych Appearance: grossly normal Mental Status: mental status grossly normal Course Vital Signs Vital signs: Vital Signs Temperature 36.5 C 12/02/21 08:59 Pulse 84 12/02/21 08:59 Respiratory Rate 18 12/02/21 08:59 Blood Pressure 143/66 H 12/02/21 08:59 Pulse Oximetry 99 12/02/21 08:59 Temperature 36.5 C 12/02/21 08:59 Temperature Source Temporal Artery Scan 12/02/21 08:59 Pulse 84 12/02/21 08:59 Respiratory Rate 18 12/02/21 08:59 Respiratory Effort 12/02/21 09:07 Blood Pressure 143/66 H 12/02/21 08:59 Blood Pressure Position Sitting 12/02/21 08:59 Pulse Oximetry 99 12/02/21 08:59 Oxygen Delivery Method Room Air 12/02/21 08:59 Oxygen Flow Rate 0 12/02/21 08:59 Pain Level 6 12/02/21 09:19 Lab/Test Results Lab/Test Results: Laboratory Tests Range/Units 12/02/21 09:10 WBC (4.4-10.8) 10^3/uL 13.13 H RBC (3.93-5.22) 10^6/uL 4.68 Hgb (11.2-15.7) g/dL 13.9 Hct (36.0-46.0) % 43.0 MCV (80-95) fL 91.9 MCH (27.0-33.0) pg 29.7 MCHC (32.0-36.0) % 32.3 RDW (11.7-14.6) % 13.2 Plt Count (130-400) 10^3/uL 275 MPV (8.0-11.0) fL 10.0 Immature Gran % 0.3 Neutrophils % 89.3 Lymphocytes % 5.9 Monocytes % 3.8 Eosinophils % 0.5 Basophils % 0.2 Nucleated RBC % % 0 Absolute Neutrophils (1.2-6.7) 10^3/uL 11.73 H Absolute Lymphocytes (1.2-3.4) 10^3/uL 0.77 L Absolute Monocytes (0.1-0.8) 10^3/uL 0.50 Absolute Eosinophils (0.0-0.7) 10^3/uL 0.07 Absolute Basophils (0.0-0.2) 10^3/uL 0.03
[2021-12-02 09:53] LABS: ALT 12 U/L (14-59); AST 19 U/L (15-37); Albumin 3.6 g/dL (3.4-5.0); Alkaline Phosphatase 101 U/L (46-116); Anion Gap 8.8 mmol/L (3-11); BUN 16 mg/dL (7-18); Bilirubin, Total 0.4 mg/dL (0.2-1.0); CO2 26.2 mmol/L (21.0-32.0); CREATININE 0.9 mg/dL (0.55-1.02); Chloride 104 mmol/L (98-107); Glucose 128 mg/dL (74-106); Lipase 122 U/L (73-393); Potassium 4.2 mmol/L (3.5-5.1); Sodium 139 mmol/L (136-145); Total Protein 7.2 g/dL (6.4-8.2)
[2021-12-02] MEDS: Normal Saline 1,000 ML 1000 ML IV (09:57)
[2021-12-02 10:32] LABS: Bilirubin Negative (Negative); Blood Large (Negative); Clarity Clear (Clear); Glucose Negative (Negative); Ketones Negative (Negative); Leukocyte Esterase Negative (Negative); Nitrite Negative (Negative); Specific Gravity 1.015 (1.005-1.025); Urobilinogen 0.2 EU/dL (Up TO 0.2)
[2021-12-02 10:47] LABS: Bacteria Negative HPF (Negative); C & S Indicated? No; Casts Negative LPF (Negative); Crystals Negative HPF (Negative); Epithelial Cells Rare HPF (Negative); Mucus Negative (Negative); WBC 0-2 HPF (0-5)
--- NOTE | 2021-12-02 12:11 | DI.CT_ITS ---
Exam(s) CT RENAL COLIC WO EXAM: CT RENAL COLIC WO CLINICAL HISTORY: Right flank pain, hematuria. TECHNIQUE: Imaging Protocol: Axial computed tomography images with coronal and sagittal reformatted images were created and reviewed. COMPARISON: No exams were available for comparison FINDINGS: ABDOMEN: Lung Bases: Normal where visualized. Small hiatal hernia. Liver: Normal density. No measurable mass. Gallbladder and biliary tract: Status post cholecystectomy. No significant biliary ductal dilatation . Pancreas: Normal density, no abnormal calcifications or inflammatory process. Spleen: Normal. Kidneys: Normal size, contour and axis.There is a 4 mm stone at the right ureteropelvic junction caus ing mild hydronephrosis. Bilateral nephrolithiasis. No masses seen. Adrenal glands: Hypodense nodularity of both adrenal glands is noted. These likely reflect adenomas. The nodule on the right measures 7 mm. The nodularity on the left measures up to 8 mm. No follow- up is recommended. Lymph nodes: Within normal limits. Abdominal Aorta: Abdominal portion non-dilated. Atherosclerosis. PELVIS: Bladder:Symmetric distention, no gross wall thickening. Bowel: No obstruction or bowel wall thickening. Appendix is unremarkable. There is diverticulosis se en in the colon, but no evidence of acute diverticulitis. Peritoneal cavity: No ascites, collection or mesenteric inflammatory response. No free air. Reproductive organs: Within normal limits. Bones: Within normal limits. Soft Tissues: Within normal limits. IMPRESSION: 1. 4 mm right UPJ stone causing mild hydronephrosis. 2. Bilateral nephrolithiasis. 3. Results of this exam have been verbally communicated with provider. RADIATION DOSE DELIVERED: 835.5mGy.cm Total DLP DATA REPOSITORY: All CT scans at this facility are submitted to the National Radiology Data Registry (NRDR) Dose Index Registry (DIR) with the [employer] (ACR). RADIATION OPTIMIZATION: All CT scans at this facility use at least one of these dose optimization te chniques: automated exposure control; mA and/or kV adjustment per patient size (includes targeted exa ms where dose is matched to clinical indication); or iterative reconstruction.
[2021-12-02 12:18] VITALS: O2SAT 100
[2021-12-02 12:19] VITALS: BP 149/68; PULSE 62
[2021-12-02 13:04] VITALS: BP 149/68; PULSE 62; RESP 18; TEMP 36.5; O2SAT 100
--- NOTE | 2021-12-02 18:20 | NUR.NOTE ---
Nursing Note: referral to cm and urology for kidney stone
== END 2021-12-02 13:17 | disposition home or self-care (01) ==
PROVIDERS: Emergency Provider Physician Assistant; PCP Internal Medicine
DX: N20.0 Calculus of kidney (principal)
CPT/HCPCS: 36415; 80053; 83690; 96360; 96361; 99284; 74176; 81003; 81015; 85025; 99283

== ENCOUNTER → 2022-01-01 14:48 | Outpatient (BNVA) | payer MEDICARE, BC, SELFPAY | PROVIDERS: PCP Internal Medicine; Referring Provider Internal Medicine; Visit Provider Urology | DX: N20.1 Calculus of ureter (principal) | CPT/HCPCS: 99215 ==

== ENCOUNTER 2022-01-17 16:00 | Outpatient (REF) | payer MEDICARE, BC, SELFPAY ==
[2022-01-27 00:22] LABS: Source: Passed Stone
== END 2022-01-17 16:01 | disposition home or self-care (01) ==
LOC: LBN 16:00
PROVIDERS: PCP Internal Medicine; Visit Provider Urology
DX: N20.1 Calculus of ureter (principal)
CPT/HCPCS: 82365

== ENCOUNTER 2022-01-19 17:32 | Outpatient (REF) | payer MEDICARE, BC, SELFPAY | END 2022-01-19 17:33 | disposition home or self-care (01) | LOC: LBN 17:32 | PROVIDERS: PCP Internal Medicine; Visit Provider Urology ==

== ENCOUNTER 2022-06-04 18:25 | Outpatient (REF) | payer MEDICARE, BC, SELFPAY ==
[2022-06-05 13:45] LABS: COVID-19 RT-PCR UVMMC Result Negative (Negative)
== END 2022-06-04 18:26 | disposition home or self-care (01) ==
LOC: LBN 18:25
PROVIDERS: PCP Internal Medicine; Visit Provider Physician Assistant Medical
DX: Z20.822 Contact with and (suspected) exposure to COVID-19 (principal); R11.0 Nausea
CPT/HCPCS: U0003

== ENCOUNTER 2023-04-01 01:41 | Outpatient (CLI) | payer MEDICARE, BC, SELFPAY ==
--- NOTE | 2023-04-01 | DI.RAD_ITS ---
Exam(s) XR ABDOMEN FLAT PLATE EXAM: 2D digital imaging was performed. CLINICAL HISTORY: H/O RENAL CALCULI,Z87.442. COMPARISON: CT CT RENAL COLIC WO from 12/02/2021 TECHNIQUE: Supine views of the abdomen was performed. Two images were obtained. FINDINGS: LUNG BASES: Clear. BOWEL GAS PATTERN: Nondistended. There is a moderate amount of stool seen throughout the colon. FREE AIR: None. CALCIFICATIONS: The renal shadows are obscured by overlying bowel. No definite renal tract calculi a re seen. There are multiple phleboliths seen in the pelvis. OSSEOUS STRUCTURES: Normal for age. OTHER FINDINGS: Surgical clips are seen in the right upper quadrant consistent with prior cholecystec og. IMPRESSION: No definite urinary tract calculi. Examination is limited by overlying bowel. DATA REPOSITORY: RADIATION DOSE DELIVERED:
== END 2023-04-01 02:01 ==
PROVIDERS: PCP Nurse Practitioner; Visit Provider Nurse Practitioner Gerontology
DX: Z87.442 Personal history of urinary calculi (principal)
CPT/HCPCS: 74018

== ENCOUNTER → 2023-04-07 13:12 | Outpatient (BNVA) | payer MEDICARE, BC, SELFPAY | PROVIDERS: PCP Nurse Practitioner; Referring Provider Nurse Practitioner; Visit Provider Nurse Practitioner Gerontology | DX: N20.0 Calculus of kidney (principal) | CPT/HCPCS: 99213 ==

== ENCOUNTER 2023-05-27 02:10 | Outpatient (CLI) | payer MEDICARE, BC, SELFPAY ==
[2023-05-27 07:13] LABS: Abs Immature Grans 0.02 10^3/uL (0.0-0.06); Absolute Basophil Count 0.04 10^3/uL (0.0-0.2); Absolute Eosinophil Count 0.11 10^3/uL (0.0-0.7); Absolute Lymphocyte Count 1.57 10^3/uL (1.2-3.4); Absolute Neutrophil Count 4.72 10^3/uL (1.2-6.7); Basophils % 0.6; Eosinophils % 1.6; HCT 43.1 % (36.0-46.0); HGB 14.4 g/dL (11.2-15.7); Immature Grans % 0.3; Lymphocytes % 22.2; MCH 30.2 pg (27.0-33.0); MCHC 33.4 % (32.0-36.0); MCV 90 fL (80-95); MPV 9.2 fL (8.0-11.0); Monocytes % 8.5; Neutrophils % 66.8; Platelet Count 252 10^3/uL (130-400); RBC 4.77 10^6/uL (3.93-5.22); RDW 13.1 % (11.7-14.6); RDW-SD 43.8 fL; WBC 7.06 10^3/uL (4.4-10.8)
[2023-05-27 07:42] LABS: Hemoglobin A1C 5.3 % (<5.7)
[2023-05-27 08:05] LABS: ALT 9 U/L (14-59); AST 10 U/L (15-37); Albumin 3.6 g/dL (3.4-5.0); Alkaline Phosphatase 88 U/L (46-116); Anion Gap 8.3 mmol/L (3-11); BUN 15 mg/dL (7-18); Bilirubin, Total 0.5 mg/dL (0.2-1.0); CO2 28.7 mmol/L (21.0-32.0); CREATININE 0.9 mg/dL (0.55-1.02); Calcium 8.7 mg/dL (8.5-10.1); Calculated LDL 132 mg/dL (<100); Chloride 105 mmol/L (98-107); Cholesterol 187 mg/dL (<200); Glucose 97 mg/dL (74-106); HDL Cholesterol 35 mg/dL (40-60); Potassium 3.9 mmol/L (3.5-5.1); Sodium 142 mmol/L (136-145); TSH (W/Ref FT4) 1.06 uIU/mL (0.36-3.74); Total Protein 6.7 g/dL (6.4-8.2); Triglyceride 104 mg/dL (<150)
== END 2023-05-27 02:11 | disposition home or self-care (01) ==
LOC: LBO 02:11
PROVIDERS: PCP Nurse Practitioner; Visit Provider Nurse Practitioner
DX: E04.1 Nontoxic single thyroid nodule (principal); E66.3 Overweight; Z13.220 Encounter for screening for lipoid disorders; R73.01 Impaired fasting glucose
CPT/HCPCS: 36415; 80053; 80061; 83036; 84443; 85025

== ENCOUNTER → 2023-07-15 02:13 | Outpatient (CLI) | payer MEDICARE, BC, SELFPAY ==
--- NOTE | 2023-07-15 07:15 | DI.DEXA_ITS ---
Exam(s) XR DEXA BONE DENSITY W/WO STORM EXAM: XR DEXA BONE DENSITY W/WO STORM CLINICAL HISTORY: screening for osteoporosis in postmenopausal woman,z78.0,h/o osteopenia TECHNIQUE: COMPARISON: No exams were available for comparison FINDINGS: Lateral Spine Image: Unremarkable. No compression deformities identified. Left hip: Total T-Score: -1.6 Total Z-Score: -0.1 T- and Z-scores: Findings are consistent with osteopenia. Lumbar Spine: Total T-Score: -0.7 Total Z-Score: 1.3 T- and Z-scores: Within normal limits. IMPRESSION: No evidence of osteoporosis.
--- NOTE | 2023-07-15 07:15 | DI.MAMMO_ITS ---
Exam(s) MAMMO SCREENING EXAM: MAMMO SCREENING CLINICAL HISTORY: screening,z12.39. TECHNIQUE: Bilateral full field digital CC and MLO mammographic images were obtained with 3D tomosyn thesis and utilizing computer aided detection (CAD). COMPARISON: Prior mammograms were reviewed. FINDINGS: There has been no significant change in the appearance and distribution of the fibroglandular tissue. Small nodular density anteriorly in the left breast is unchanged from prior mammograms. There are no new spiculated masses nor malignant appearing microcalcification groups. There is no significant architectural distortion nor skin thickening-retraction. IMPRESSION: No radiographic evidence of malignancy. BI-RADS Category 2 - Benign Findings Breast Density - Category B - Scattered areas of fibroglandular density Breast density Category C or D implies that the patient has dense breast tissue. Dense breast tissue can make it harder to find cancer on a mammogram. Dense breast tissue is also associated with an incr eased risk of breast cancer. This information about the result of the mammogram report was provided to the patient to raise their awareness. Use this report when you speak with the patient about their risks for breast cancer, which includes their family history. At that time, you may recommend additional screening tests (Ultrasoun d or MRI) as these tests may add significant information. A negative radiographic report should not delay biopsy if a dominant or clinically suspicious mass is present. Up to ten percent of cancers are not identified on mammography. A negative report may reinforce clinical impression. Adenosis and dense breasts may obscure an underlying neoplasm. False positive reports average 6 to 10%. Patient will receive a letter notifying them of these results.
== END ==
PROVIDERS: PCP Nurse Practitioner; Visit Provider Nurse Practitioner
DX: Z12.31 Encounter for screening mammogram for malignant neoplasm of breast (principal); Z78.0 Asymptomatic menopausal state; Z87.39 Personal history of other diseases of the musculoskeletal system and connective tissue; Z13.820 Encounter for screening for osteoporosis
CPT/HCPCS: 77063; 77067; 77080

== ENCOUNTER → 2023-08-05 02:22 | Outpatient (CLI) | payer MEDICARE, BC, SELFPAY ==
--- NOTE | 2023-08-05 07:00 | DI.US_ITS ---
Exam(s) US THYROID EXAM: US THYROID CLINICAL HISTORY: Assess stability,compare to 2020,multinodular goiter,e04.2. TECHNIQUE: Ultrasound thyroid performed using standard protocol. COMPARISON: US US THYROID from 10/28/2020 FINDINGS: RIGHT THYROID LOBE: Measures 2.4 cm AP x 2.8 cm wide x 5.8 cm craniocaudal Three nodules evident and compared to the prior study. Nodule #1 this is the uppermost nodule. Characteristics as follows : Size: Measures 1.3 x 1.1 x 1.4 cm Composition: Mixed [id number]-6 point Echogenicity: Solid components are isoechoic to surrounding gland-1 point Shape: Wider than taller in the transverse plane-0 points Margin: Somewhat indistinct-0 points Echogenic Foci: None-0 points Total Points for this nodule: 2 ACR Ti-Rads Category: TR2 This TR 2 nodule can be followed Nodule #2 this is mid level peripherally calcified nodule Size: Measures 2.0 x 1.3 x 1.8 cm Composition: Solid-2 points Echogenicity: Isoechoic-1 point Shape: Wider than taller- 0 points Margin: Smooth-0 points Echogenic Foci: Peripheral calcification-2 points Total points for this nodule: 5 ACR Ti-Rads Category: TR4 This TR 4 nodule should undergo ultrasound-guided FNA as it measures greater than 1.5 cm. Nodule #3 Size: Measures 1.4 x 1.5 x 1.5 cm Composition: Mixed dhwcy-utnmwa-5 point Echogenicity: Isoechoic-1 point Shape: Wider than taller- 0 points Margin: Smooth-0 points Echogenic Foci: None-0 points Total points for this nodule: 2 ACR Ti-Rads Category: 2 This TR 2 nodule can be followed ISTHMUS: Normal thickness. There are no nodules in the isthmus. LEFT THYROID LOBE: Measures 1.5 cm AP x 1.3 wide x 4.3 cm craniocaudal There few small colloid cysts. One single solid nodule details as below: Nodule #1 Size: Measures 1.0 x 0.5 x 1.0 cm Composition: Predominately solid-2 points Echogenicity: Hypoechoic-2 points Shape: Wider than taller in the transverse plane-0 points Margin: Smooth-0 points Echogenic Foci: None-0 points Total points for this nodule: 4 ACR Ti-Rads Category: 4 This TR 4 nodule can be followed as it measures less than 1.5 cm LYMPH NODES: There is no significant adenopathy. IMPRESSION: 1. Three nodules in the right lobe and a single nodule in the left lobe as detailed and graded above. 2. The peripherally calcified nodule in the right thyroid lobe is a TR4 level nodule and should under go ultrasound-guided FNA as it measures greater than 1.5 cm. Apparently this patient has already und ergone FNA of 1 of the thyroid nodules. There is a possibly that this was the nodule which was alrea dy sampled. 3. There is no significant lymphadenopathy. DATA REPOSITORY:
== END ==
PROVIDERS: PCP Nurse Practitioner; Visit Provider Otolaryngology
DX: E04.2 Nontoxic multinodular goiter (principal)
CPT/HCPCS: 76536

== ENCOUNTER → 2023-11-11 10:34 | Outpatient (BNVA) | payer MEDICARE, BC, SELFPAY | PROVIDERS: PCP Nurse Practitioner; Referring Provider Nurse Practitioner; Visit Provider Physical Therapy Assistant | DX: Z12.11 Encounter for screening for malignant neoplasm of colon (principal); Z86.010 Personal history of colon polyps; Z80.0 Family history of malignant neoplasm of digestive organs ==

== ENCOUNTER 2024-01-24 06:50 | Day surgery (SDC) | payer MEDICARE, BC, SELFPAY ==
--- NOTE | 2024-01-23 17:27 | W.PM.DSUDISC ---
Date of service: 01/24/24 Time of Service: 08:37 Discharge Plan Disposition Patient Disposition: Home Condition: Good Discharge Details Reason For Visit: screening colonoscopy Attending Provider: Vargas Mcmullen Primary Care Provider: Hazel Dunn Home Meds and New Rx's Prescriptions: Continued triamcinolone acetonide 0.1 % cream 1 applic topical DAILY PRN albuterol sulfate [Ventolin HFA] 90 mcg/actuation HFA aerosol inhaler 1 puff inhalation ONCE PRN cholecalciferol (vitamin D3) 50 mcg (2,000 unit) tablet 50 mcg PO DAILY vitamin E 200 unit capsule 200 unit PO DAILY latanoprost 0.005 % drops 1 drp ophthalmic (eye) DAILY Rx Instructions: Right Eye calcium carbonate [Calcium 500] 500 mg calcium (1,250 mg) tablet 500 mg PO DAILY Centrum Silver 0.4-300-250 mg-mcg-mcg tablet 1 tab PO DAILY zinc 15 mg Tablet 15 mg PO DAILY acetaminophen 500 mg capsule 1,000 mg PO Q8H PRN PRNQty: 90 0RF ibuprofen 600 mg tablet 600 mg PO TID PRN (Reason: pain) Qty: 30 0RF Discontinued bisacodyl [Dulcolax (bisacodyl)] 5 mg tablet,delayed release (DR/EC) 5 mg PO ONCE Qty: 4 0RF Rx Instructions: Take per colonoscopy instructions provided by ordering providers office polyethylene glycol 3350 17 gram/dose powder 17 g PO ONCE Qty: 238 0RF Rx Instructions: Take per colonoscopy instructions provided by ordering providers office Discharge Instructions Instructions: Diverticulosis (GEN), Diverticulosis Diet (GEN) Additional Instructions: Please, we are able to complete your colonoscopy today without any difficulty. Your prep was excellent and I could see everything fine. As you mentioned, you do have some diverticulosis. It is basically limited to the sigmoid portion of the colon, which is the most common location of diverticulosis. I do not see anything particularly worrisome about it today. I have attached a little bit of information about dietary recommendations for diverticular disease. I did see 1 small area that may be a polyp. I did remove this. I would not be surprised if it turns out to be normal tissue. Because of the nature of the polyps that you had removed previously, at the very longest, I recommend a 5-year interval for your next colonoscopy. If the pathology on this bit of tissue does come back with a specific type of polyp, I will certainly let you know, especially if that influences the recommendations. 1. If tolerated, consume a soft, low fiber diet for 1-2 days. 2. Do not drive, drink alcohol, operate machinery, make critical decisions, or do activities that require coordination or balance for 24 hours. 3. Because air was put into your colon during the procedure, expelling air from your rectum (passing gas or farting) is normal. 4. You may not have a bowel movement for 1-3 days because of the colonoscopy prep. This is normal. 5. Go directly to the emergency room if you notice any of the following: Develop chills (warm to touch), or if you have a thermometer and your temperature is above 101 Difficulty breathing or difficultly swallowing Persistent vomiting Severe abdominal pain, other than gas cramps Severe chest pain Black, tarry stools Any bleeding ? exceeding one tablespoon 6. Call your physician if the site where your intravenous was started becomes red, swollen, painful, and warm to touch. 7. Your physician has reviewed your pre-procedure medications. Please continue to take those medications as previously ordered. You will be given specific information/education regarding any changes to your medications before leaving. Activity:: Activity as Tolerated Diet:: As Tolerated Discharge Orders Discharge Orders: Discharge Order (Routine); Ordered 01/23/24 Ordered By: Vargas Mcmullen DS: Diagnosis Discharge Diagnosis (1) Encounter for screening colonoscopy: Status: Acute Asessment and Plan: Follow-up on polyp results
--- NOTE | 2024-01-23 17:29 | COLE_ITS ---
Date of service: 01/24/24 Time of Service: 08:42 Colonoscopy Report Date of procedure: 01/24/24 Pre-op diagnosis general: screening colonoscopy Post-op diagnosis procedure note: other (Diverticulosis, polyp at 15 cm) Procedure: colonoscopy with polypectomy Surgeon: Vargas Mcmullen Anesthesia Type: General:No Airway Estimated blood loss (mL): 5 Pathology: other (Less than 0.25 cm flat polyp at 15 cm from the anus) Complications: None Disposition: same day Indications: Kindra is a 68 year old woman with a history of adenomatous polyps who needs her next screening colonoscopy Prep: Miralax/Dulcolax Procedure Start Time: 08:13 Procedure End Time: 08:29 Retraction Time: 11 Findings: Sigmoid diverticulosis, 0.25 cm flat polyp at 15 cm Procedure Description: After the induction of monitored anesthetic care, and with the patient in left lateral decubitus position, I began by performing an external anorectal exam.? Perineum and skin were normal, as was the anal verge.? There are some fibrosed perianal skin tags consistent with old hemorrhoids.? Next, I performed a digital rectal exam.? I did not appreciate any abnormal findings.? Next, I advanced a colonoscope into the rectal vault.? I performed retroflexion.? There are grade 1 internal hemorrhoids.? Using insufflation, I then advanced the colonoscope beyond the rectal folds and into the sigmoid colon before advancing towards the cecum.? The quality of the prep was excellent.? The scope was noted to be in the cecum by identification of the ileocecal valve and appendiceal orifice.? I then began withdrawing the colonoscope using repeated irrigation as necessary for ful l evaluation of the colonic mucosa. ?Once the scope was withdrawn to the level of the rectum, great care was taken to examine portions of the rectal folds.? Around 15 cm from the anal verge was a flat polyp. It was well less than 0.25 cm. This was removed with cold forceps with minimal bleeding. Finally, the scope was withdrawn and the patient was brought to the same-day surgery recovery unit as the anesthetic wore off. ?The findings and instructions were shared with the patient prior to discharge. [place] Bowel Prep [place] Bowel Prep Right Colon: 3 Left Colon: 3 Transverse Colon: 3 Total Score: 9
[2024-01-24 07:00] VITALS: BP 124/78; PULSE 97; RESP 20; TEMP 36.6; O2SAT 98
[2024-01-24] MEDS: Lactated Ringers 1,000 ML 80 ML IV (07:22)
--- NOTE | 2024-01-24 07:36 | ANES.PREOP_ITS ---
General Info Date of Service Date Performed: 01/24/24 Height: 5 ft 2.5 in Weight: 75.8 kg Body Mass Index (BMI): 30.0 Surgical Procedure: Operation Date: 01/24/24 08:20 Proposed Procedure Side Surgeon vaibhav Mcmullen MD Meds Allergies and Home Medications Allergies Allergy/AdvReac Type Severity Reaction Status Date / Time diclofenac AdvReac Severe Other (See Verified 01/24/24 07:09 Comment) Home Medication Medication Instructions Recorded calcium carbonate 500 mg calcium 500 mg PO DAILY 09/17/20 (1,250 mg) tablet (Calcium 500) latanoprost 0.005 % eye drops 1 drp ophthalmic (eye) DAILY 09/17/20 [id number] acid 0.4 1 tab PO DAILY 09/17/20 mg-lycopene 300 mcg-lutein 250 mcg tablet (Centrum Silver) albuterol sulfate 90 mcg/actuation 1 puff inhalation ONCE PRN 09/24/20 aerosol inhaler (Ventolin HFA) triamcinolone acetonide 0.1 % 1 applic topical DAILY PRN 09/24/20 topical cream cholecalciferol (vitamin D3) 50 50 mcg PO DAILY 11/04/20 mcg (2,000 unit) tablet vitamin E 200 unit capsule 200 unit PO DAILY 11/04/20 acetaminophen 500 mg capsule 1,000 mg (2 x 500 mg) PO Q8H PRN 04/23/21 PRN #90 caps ibuprofen 600 mg tablet 600 mg PO TID PRN pain #30 tabs 04/23/21 zinc 15 mg tablet 15 mg PO DAILY 12/02/21 Current Visit Medications: Current Medications Generic Name Dose Route Start Last Admin Trade Name Jordon PRN Reason Stop Dose Admin Hyoscyamine Sulfate 0.125 mg 01/23/24 17:30 Hyoscyamine 0.125 Mg Sl/Oral/Chew SL 02/22/24 17:29 DIRECTED PRN Ringer's Solution 1,000 mls @ 80 mls/hr 01/24/24 06:00 01/24/24 07:22 IV 02/20/24 23:59 80 mls/hr INFUSION LITZY Administration IV Miscellaneous Supplies 1 each 01/24/24 06:00 Iv Access IV 02/20/24 23:59 DIRECTED LITZY Ondansetron HCl 4 mg 01/23/24 17:30 Ondansetron 4 Mg/2 Ml Vial IVP 02/22/24 17:29 Q4H PRN PRN Nausea / Vomiting Sodium Chloride 0 ml 01/24/24 06:00 Normal Saline Flush 10 Ml Syr IV 02/20/24 23:59 PRN PRN Sodium Chloride 0 ml 01/24/24 06:00 Normal Saline 10 Ml Vial IJ 02/20/24 23:59 DIRECTED PRN Sterile Water 0 ml 01/24/24 06:00 Water,Injection,Sterile 10 Ml Vial IJ 02/20/24 23:59 DIRECTED PRN PFSH Active Problems Active Problems: Problem Status Onset Code Encounter for screening colonoscopy Z12.11 Multinodular Goiter E04.2 Multinodular Goiter E04.2 Renal calculi N20.0 Right ureteral calculus N20.1 Elevated blood pressure reading without diagnosis of hypertension R03.0 Family history of melanoma Z80.8 Internal derangement of right knee M23.91 Contusion of right tibia S80.11XA Pain, lower extremity M79.606 Smoker F17.200 Goiter E04.9 Glaucoma H40.9 Right thyroid nodule E04.1 PTSD (post-traumatic stress disorder) F43.10 Medical History Medical History (Updated 01/24/24 @ 07:10 by Glenis Morin) Multiple benign nevi (~04/2023) 04/21/23 [facility] Derm -upper/lower Ext and trunk Seborrheic keratoses (~04/2023) 04/21/23 [facility] D[facility] -[facility] Derm, LN used on inflamed areas Medical History Comments:: pt. states her dad had a hard time coming out of anesthesia. Surgical History Surgical History (Updated 01/24/24 @ 07:23 by Glenis Morin) Tear of lateral meniscus of right knee, current S/P Arthroscopy: 04/23/2021 Encounter for colonoscopy due to history of colonic polyp H/O tubal ligation [address] [facility] History of cholecystectomy (~2001) History of carpal tunnel release 2003 & 2004 Tobacco Smoking/Tobacco Use Status: Current every day Tobacco Type: cigarettes Alcohol Alcohol Intake: never Substance Use Substance use: Never Substance use type: does not use Vital Signs and Lab Results Vital Signs Most Recent Vital Signs in EMR: Most Recent Vital Signs Temp Pulse Resp BP Pulse Ox 36.6 C 97 H 20 124/78 98 01/24/24 07:00 01/24/24 07:00 01/24/24 07:00 01/24/24 07:00 01/24/24 07:00 Lab Results Blood Type / Crossmatch: No Data to Display Complete Blood Count: No Data to Display Complete Metabolic Panel: No Data to Display Liver Function Panel: No Data to Display Coagulation Panel: No Data to Display Cardiac Panel: No Data to Display Arterial Blood Gas: No Data to Display Venous Blood Gas: No Data to Display Pancreas Panel: No Data to Display Thyroid Panel: No Data to Display Infectious Disease: No Data to Display Blood Cultures: No Data to Display Toxicology Panel: No Data to Display Anesthesia Assessment and Plan Anesthesia History Personal History: No History of Anesthesia Complications Family History: Other Exercise Tolerance Exercise Tolerance: Metabolic Equivalents>4 Pertinent Negatives Pertinent Negatives: No Symptoms of GERD, No Major Cardiovascular Symptoms or Complaints and No Major Pulmonary Symptoms or Complaints Cardiac & Pulmonary Exam Cardiac Exam: Normal S1/S2 Heart Sounds Pulmonary Exam: Clear Bilateral Breath Sounds Implantable Cardiac Device Does patient have a Pacemaker or an ICD?: No Airway Exam Known Difficult Airway: No Mallampati Class: 2 Mouth Opening: Normal (> 3cm) Thyromental Distance: Greater than 3 cm Neck Range of Motion: Full ROM Neck Circumference: Normal Teeth Condition: Normal Dentition ASA Classification ASA Score: ASA 2 Emergency Case?: No NPO Status NPO Status: NPO Clears >2 hours, Solids >8 hours Anesthesia Plan Resuscitation Status: Full Code Anesthesia Technique: General Anesthesia Airway Planned: Natural Airway Monitors Used: Standard Monitors
--- NOTE | 2024-01-24 07:49 | HPE_ITS ---
Assessment and Plan Assessment and plan (1) Encounter for screening colonoscopy: Status: Acute Assessment and plan: We reviewed the importance of screening colonoscopies as part of routine health maintenance again today. We also talked about the risks and the benefits of the procedure. I think she has a very good understanding of this. She was able to provide informed consent, and we can proceed as planned. History of Present Illness History of Present Illness Chief Complaint: Screening colonoscopy Narrative: 67 y/o female with history of PTSD presents for colonoscopy screening pre-op. She describes her last Colonoscopy was in the state of [place] and she believes that she had 3 polyps removed at that time. She reports a family history of colon cancer in her materanl aunt. She denies any changes in bowel habits including bloody or black tarry stools, abdominal pain, diarrhea or constipation. Patient describes having fecal urgency first thing in the morning prior to eating. She states that her bowel movements initially began as formed stool and then progressively changed to diarrhea. She does not feel that this is impacted at all by her eating habits. She denies constitutional symptoms. She denies chest pain, palpitations, dyspnea or dyspnea with exertion. She denies prior history or family history of adverse reactions or complications with anesthesia. The patient denies any history of stroke, NC, seizures, bleeding or clotting disorders. She denies having any implanted metal in her body. Since her last office visit, there have been no significant interval history or physical changes. PFSH All Active Problems (Updated 01/24/24 @ 07:10 by Glenis Morin) Encounter for screening colonoscopy (Acute) Multinodular Goiter (Acute) Multinodular Goiter (Acute) Renal calculi (Chronic) Right ureteral calculus (Acute) Elevated blood pressure reading without diagnosis of hypertension (Chronic) Family history of melanoma (Acute) Internal derangement of right knee (Acute) Contusion of right tibia (Acute) Pain, lower extremity (Acute) Smoker (Acute) Goiter (Chronic) Glaucoma (Chronic) Right thyroid nodule (Acute) PTSD (post-traumatic stress disorder) (Acute) Medical History (Updated 01/24/24 @ 07:10 by Glenis Morin) Multiple benign nevi (~04/2023) 04/21/23 Derm -upper/lower Ext and trunk Seborrheic keratoses (~04/2023) 04/21/23 DH Derm -DH Derm, LN used on inflamed areas Surgical History (Updated 01/24/24 @ 07:23 by Glenis Morin) Tear of lateral meniscus of right knee, current S/P Arthroscopy: 04/23/2021 Encounter for colonoscopy due to history of colonic polyp H/O tubal ligation 1979 at [facility] History of cholecystectomy (~2001) History of carpal tunnel release 2003 & 2004 Family History Aunt Breast cancer Aunt Colon cancer Aunt Breast cancer Brother Diabetes Brother Diabetes Sister Diabetes Father Heart disease Daughter Heart disease Social History Smoking/Tobacco Use Status: Current every day Tobacco Type: cigarettes Tobacco: How many years used: 25 Smoking risk assessment performed?: Yes Alcohol Intake: never Drug use: Never Substance use type: does not use Counseling given: No Adopted: No Caregiver/Support person: No Foster care: No Housing: apartment Number of Children: 2 Do you need help understanding health information?: Rarely 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, [employer] Sexually active: No Do you think of yourself as: straight/heterosexual Current gender identity: female What is your relationship status?: Panel score (0-1 are the most socially isolated patients): 0 What type of physical activity do you participate in: none Seatbelt use: always Drive intox or ride w/intox show horse driver: No Working smoke detector in home: Yes Fire extinguisher in home: Yes Carbon monox detector in home: Yes Do you feel safe at home: Yes Do you feel safe in your relationship?: Yes Additional Social history: lives alone Meds Allergies and Home Medications Allergies Allergy/AdvReac Type Severity Reaction Status Date / Time diclofenac AdvReac Severe Other (See Verified 01/24/24 07:09 Comment) Home Medications Medication Instructions Recorded Confirmed Type calcium carbonate 500 mg calcium 500 mg PO DAILY 09/17/20 01/24/24 History (1,250 mg) tablet (Calcium 500) latanoprost 0.005 % eye drops 1 drp ophthalmic (eye) DAILY 09/17/20 01/24/24 History hfulmbhn-xmi-lamis acid 0.4 1 tab PO DAILY 09/17/20 01/24/24 History mg-lycopene 300 mcg-lutein 250 mcg tablet (Centrum Silver) albuterol sulfate 90 mcg/actuation 1 puff inhalation ONCE PRN 09/24/20 01/24/24 History aerosol inhaler (Ventolin HFA) triamcinolone acetonide 0.1 % 1 applic topical DAILY PRN 09/24/20 01/24/24 History topical cream cholecalciferol (vitamin D3) 50 50 mcg PO DAILY 11/04/20 01/24/24 History mcg (2,000 unit) tablet vitamin E 200 unit capsule 200 unit PO DAILY 11/04/20 01/24/24 History acetaminophen 500 mg capsule 1,000 mg (2 x 500 mg) PO Q8H PRN 04/23/21 01/24/24 Rx PRN #90 caps ibuprofen 600 mg tablet 600 mg PO TID PRN pain #30 tabs 04/23/21 01/24/24 Rx zinc 15 mg tablet 15 mg PO DAILY 12/02/21 01/24/24 History Exam Const General: cooperative, healthy appearing and not in acute distress Neck Neck: normal visual inspection, no lymphadenopathy and supple Resp Effort & Inspection: normal respiratory effort Auscultation: clear to auscultation bilaterally Cardio Jugular venous pressure: no JVD Rate: regular rate Rhythm: regular rhythm Heart Sounds: S1 normal and S2 normal GI Inspection: normal to inspection Palpation: soft, no guarding, no hernias and nontender Percussion: normal to percussion Auscultation: normal bowel sounds Neuro General: patient alert, patient awake and patient oriented x3 Psych Appearance: grossly normal Results Last Vital Signs Temp 97.9 F 01/24/24 07:00 Pulse 97 H 01/24/24 07:00 Resp 20 01/24/24 07:00 BP 124/78 01/24/24 07:00 Pulse Ox 98 01/24/24 07:00
--- NOTE | 2024-01-24 08:27 | BOWEL_PTH ---
PATIENT: Carina Saavedra LOC: [facility] U#:[id number] AGE/SX: 68/F ROOM: RE01/24/[address]: Vargas Mcmullen MD : [id number] BED: DIS: 01/24/2024 SPEC #: [id number] RECD: 01/24/24 12:48 STATUS: BILLY REQ #: [id number] NELSON: 01/24/24 08:[address]: Vargas Mcmullen DEPT: Surgical Specimen RECD BY: Bina Junior ENTERED: 01/24/24 12:49 SP TYPE: Bowel OTHR DR: Hazel Dunn APRN Tissues: 1 - BIOPSY BOWEL Procedures: GROSS AND MICRO LEVEL 4 Comments: [id number]
[2024-01-24 08:34] VITALS: BP 90/66; PULSE 76; RESP 16; TEMP 36.3; O2SAT 94
--- NOTE | 2024-01-24 08:57 | W.ANESPOSTOP ---
Postoperative Evaluation Date, Time and Location Date Performed: 01/24/24 Time Performed: 08:40 Patient Location: Day Surgery Unit Vital Signs Most Recent Imported Vital Signs: Most Recent Vital Signs Temp Pulse Resp BP Pulse Ox 36.3 C L 76 16 90/66 L 94 01/24/24 08:34 01/24/24 08:34 01/24/24 08:34 01/24/24 08:34 01/24/24 08:34 Pain Score Most Recent Pain Score: Most Recent Pain Score Pain Level 0 01/24/24 08:34 Assessment Mental Status: Awake (Alert & Oriented to Patient Baseline) Airway and Respiratory Function: Patent airway with normal (patient baseline) respiratory exam Cardiovascular Function: Hemodynamically Stable Hydration Status: Adequately Hydrated Nausea & Vomiting: No Nausea or Vomiting Pain: Pt. Denies Any Pain Peripheral Nerve Block: Patient did not receive a nerve block
[2024-01-24 09:03] VITALS: BP 118/61; PULSE 68; RESP 16; TEMP 36.5; O2SAT 100
== END 2024-01-24 09:22 | disposition home or self-care (01) ==
LOC: SUR 06:51
PROVIDERS: PCP Nurse Practitioner; Visit Provider Surgery
PROC: 0DJD8ZZ Inspection of Lower Intestinal Tract, Via Natural or Artificial Opening Endoscopic (ICD-10-PCS; CPT 45378; principal; 2024-01-24 08:15)
DX: Z12.11 Encounter for screening for malignant neoplasm of colon (principal); K63.5 Polyp of colon; K57.30 Diverticulosis of large intestine without perforation or abscess without bleeding; Z86.010 Personal history of colon polyps; F17.200 Nicotine dependence, unspecified, uncomplicated; K63.89 Other specified diseases of intestine
CPT/HCPCS: 45380; 88305; J2704

== ENCOUNTER → 2024-03-28 01:56 | Outpatient (CLI) | payer MEDICARE, BC, SELFPAY ==
--- NOTE | 2024-03-28 06:30 | DI.RAD_ITS ---
Exam(s) XR ABDOMEN FLAT PLATE EXAM: 2D digital imaging was performed. CLINICAL HISTORY: monitoring b/l renal calculi,n20.0. COMPARISON: CT CT RENAL COLIC WO from 12/02/2021 CR XR ABDOMEN FLAT PLATE from 04/01/2023 TECHNIQUE: Supine views of the abdomen performed. FINDINGS: BOWEL GAS PATTERN: Nondistended. CALCIFICATIONS: Question of a faint stone at the lower pole of the right kidney. Multiple pelvic p hleboliths. OSSEOUS STRUCTURES: Normal for age. OTHER FINDINGS: Lung bases are clear. Status post cholecystectomy. IMPRESSION: 1. Nonobstructive bowel gas pattern. 2. Question of a faint stone at the lower pole of the right kidney. DATA REPOSITORY: RADIATION DOSE DELIVERED:
== END ==
PROVIDERS: PCP Nurse Practitioner; Visit Provider Nurse Practitioner Gerontology
DX: N20.0 Calculus of kidney (principal)
CPT/HCPCS: 74018

== ENCOUNTER → 2024-04-12 09:17 | Outpatient (BNVA) | payer MEDICARE, BC, SELFPAY | PROVIDERS: PCP Nurse Practitioner; Visit Provider Nurse Practitioner Gerontology | DX: N20.0 Calculus of kidney (principal) | CPT/HCPCS: 99213 ==

== ENCOUNTER 2024-10-02 14:12 | Outpatient (CLI) | payer MEDICARE, BC, SELFPAY ==
--- NOTE | 2024-10-02 08:30 | DI.RAD_ITS ---
Exam(s) XR KNEE LT 3V AP,LAT,MANSI EXAM: XR KNEE LT 3V AP,LAT,MANSI CLINICAL HISTORY: LEFT KNEE PAIN. TECHNIQUE: 2D digital imaging was performed of the left knee. Three images were obtained. AP, late ral and PA tunnel views were obtained. COMPARISON: There are no priors for comparison. FINDINGS: BONES: No acute fracture is present. No bony destructive lesion is seen. JOINTS: There is moderate narrowing of the lateral femoral tibial joint. Small osteophytes are seen involving all 3 joint compartments. No joint effusion is seen. No loose body. SOFT TISSUE: Normal. IMPRESSION: Moderate arthritis of the left knee. DATA REPOSITORY: RADIATION DOSE DELIVERED:
== END 2024-10-02 14:13 | disposition home or self-care (01) ==
LOC: DIORS 14:14
PROVIDERS: PCP Nurse Practitioner; Referring Provider Nurse Practitioner; Visit Provider Physician Assistant
DX: M17.12 Unilateral primary osteoarthritis, left knee
CPT/HCPCS: 73562; 99213

== ENCOUNTER 2024-10-26 01:40 | Outpatient (CLI) | payer MEDICARE, BC, SELFPAY ==
--- NOTE | 2024-10-26 06:41 | DI.US_ITS ---
Exam(s) US THYROID EXAM: US THYROID CLINICAL HISTORY: Assess for change,multinodular goiter,e04.2. TECHNIQUE: Ultrasound thyroid performed using standard protocol. COMPARISON: US US THYROID from 08/05/2023 FINDINGS: ISTHMUS: 3.6 mm RIGHT LOBE: Size: 5.2 x 2.3 x 2.7 cm Echogenicity: Normal. Vascularity: Normal. Nodules: There again seen 3 dominant nodules in the right lobe. There is a 2.0 x 1.3 x 1.5 cm mixed c ystic and solid isoechoic nodule in the upper pole. No echogenic foci are seen. This is consistent wi th a TI rads 2 level nodule. No follow-up is recommended. There is a 2.3 x 1.4 x 1.6 cm solid hypoech oic nodule in the midpole. There is peripheral calcification present. This is consistent with a TI ra ds 4 level nodule. Due to its size, biopsy is recommended. (Reportedly the patient has had a prior bi opsy of this nodule. Please correlate with the patient's history). There has been interval decrease i n size of the nodule in the inferior pole measuring 1.8 x 1.4 x 1.4 cm on the current examination. Th is compares to 1.5 x 1.4 x 1.5 cm on the prior examination. This is a TI rads level 4 nodule. Due to its size, biopsy is recommended. LEFT LOBE: Size: 4.4 x 1.5 x 1.4 cm Echogenicity: Normal. Vascularity: Normal. Nodules: There has been interval decrease in size of the nodule in the inferior pole measuring 0.8 x 0.6 x 0.8 cm. This compares to 1.0 x 0.5 x 1.0 cm. There are punctate echogenic foci seen. It is cons istent with a TI rads 5 level nodule. Due to its size, follow-up is recommended. OTHER FINDINGS: None. IMPRESSION: Multinodular thyroid gland as described above. Please see the above discussion for complete details o n the individual nodules. DATA REPOSITORY:
== END 2024-10-26 02:00 ==
PROVIDERS: PCP Nurse Practitioner; Visit Provider Otolaryngology
DX: E04.2 Nontoxic multinodular goiter (principal)
CPT/HCPCS: 76536

== ENCOUNTER → 2025-01-01 08:47 | Outpatient (BNVA) | payer MEDICARE, BC, SELFPAY | PROVIDERS: PCP Nurse Practitioner; Referring Provider Nurse Practitioner | DX: M17.12 Unilateral primary osteoarthritis, left knee (principal) | CPT/HCPCS: 99213 ==

== ENCOUNTER 2025-01-08 12:06 | Emergency (ER) | payer MEDICARE, BC, SELFPAY ==
[2025-01-08 12:17] VITALS: BP 161/90; PULSE 93; RESP 15; TEMP 36.8; O2SAT 98
[2025-01-08 12:21] VITALS: BP 161/90; PULSE 93; RESP 15; TEMP 36.8; O2SAT 98
--- NOTE | 2025-01-08 13:00 | DI.CT_ITS ---
Exam(s) CT ABDOMEN PELVIS W EXAM: CT ABDOMEN PELVIS W CLINICAL HISTORY: R. flank pain, hx renal stones. TECHNIQUE: Imaging Protocol: Axial computed tomography images with coronal and sagittal reformatted images were created and reviewed CONTRAST MATERIAL: Intravenous: Omnipaque 350 Contrast volume:75 ml Oral: no COMPARISON: CT CT RENAL COLIC WO from 12/02/2021 FINDINGS: ABDOMEN and PELVIS: Lung Bases: No acute findings. Small hiatal hernia. Liver: Normal density. No suspicious mass. Gallbladder and biliary tract: Cholecystectomy. No biliary dilation. Pancreas: Normal density. No abnormal calcifications or inflammatory process. No evidence of mass. Spleen: Normal. Kidneys: Normal size, contour and axis. No suspicious masses seen. Moderate right hydronephrosis s econdary to a 5 x 8 millimeter stone at the ureteropelvic junction. Additional tiny nonobstructing s tone in the mid right kidney. Adrenal glands: No masses seen. Vasculature: Abdominal aorta non-dilated. Soft tissues: Unremarkable. Bladder: No gross wall thickening. No calculi.No focal mass. Bowel: No obstruction. No bowel wall thickening. Mild sigmoid diverticulosis appendix normal. Peritoneal cavity: No ascites. No focal collection. No mesenteric inflammatory response. No free air . Bones: Unremarkable for age. Reproductive organs: Unremarkable. Lymph nodes: No pathologically enlarged lymph nodes. IMPRESSION:: Moderate right hydronephrosis secondary to a 5 x 8 millimeter stone at the ureteropelvi c junction. Findings called to Dr. Lara of the emergency department. RADIATION DOSE DELIVERED: Total DLP DATA REPOSITORY: All CT scans at this facility are submitted to the National Radiology Data Registry (NRDR) Dose Index Registry (DIR) with the [employer] (ACR). RADIATION OPTIMIZATION: All CT scans at this facility use at least one of these dose optimization te chniques: automated exposure control; mA and/or kV adjustment per patient size (includes targeted exa ms where dose is matched to clinical indication); or iterative reconstruction.
[2025-01-08 13:02] LABS: Bilirubin Negative (Negative); Blood Trace-intact (Negative); Clarity Sl Cloudy (Clear); Glucose Negative (Negative); Ketones 15 mg/dL (Negative); Leukocyte Esterase Trace (Negative); Nitrite Negative (Negative); Specific Gravity 1.025 (1.005-1.025); Urobilinogen 0.2 mg/dL (Up to 0.2)
[2025-01-08 13:05] LABS: Abs Immature Grans 0.05 10^3/uL (0.0-0.06); Absolute Basophil Count 0.04 10^3/uL (0.0-0.2); Absolute Eosinophil Count 0.06 10^3/uL (0.0-0.7); Absolute Lymphocyte Count 1.04 10^3/uL (1.2-3.4); Absolute Monocyte Count 0.74 10^3/uL (0.1-0.8); Absolute Neutrophil Count 12.89 10^3/uL (1.2-6.7); Basophils % 0.3 %; Eosinophils % 0.4 %; HCT 40.9 % (36.0-46.0); HGB 13.5 g/dL (11.2-15.7); Immature Grans % 0.3 %; MCH 30.1 pg (27.0-33.0); MCV 91 fL (80-95); MPV 9.1 fL (8.0-11.0); Platelet Count 286 10^3/uL (130-400); RBC 4.48 10^6/uL (3.93-5.22); RDW 13.2 % (11.7-14.6); RDW-SD 44.4 fL; WBC 14.82 10^3/uL (4.4-10.8)
[2025-01-08 13:12] LABS: Bacteria Few HPF (Negative); Crystals Negative HPF (Negative); Epithelial Cells Few HPF (Negative); Mucus Negative (Negative)
[2025-01-08 13:13] LABS: C & S Indicated? No; Casts Negative LPF (Negative)
--- NOTE | 2025-01-08 13:14 | W.ED.GENAD ---
Discharge Plan Disposition Patient Disposition: Home Condition: Stable Discharge Details Clinical Impression: Calculus of proximal right ureter Primary Care Provider: Hazel Dunn ED Provider: Talisha Lara Home Meds and New Rx's Prescriptions: New tamsulosin [Flomax] 0.4 mg capsule 0.4 mg PO DAILY 14 Days Qty: 14 0RF ondansetron 4 mg tablet,disintegrating 4 mg PO Q8H PRNQty: 10 0RF No Action albuterol sulfate [Ventolin HFA] 90 mcg/actuation HFA aerosol inhaler 1 puff inhalation ONCE PRN cholecalciferol (vitamin D3) 50 mcg (2,000 unit) tablet 50 mcg PO DAILY vitamin E 200 unit capsule 200 unit PO DAILY triamcinolone acetonide 0.1 % cream 1 applic topical DAILY PRN (Reason: ezcema chest) Qty: 30 6RF latanoprost 0.005 % drops 1 drp ophthalmic (eye) DAILY Rx Instructions: Right Eye calcium carbonate [Calcium 500] 500 mg calcium (1,250 mg) tablet 500 mg PO DAILY Centrum Silver 0.4-300-250 mg-mcg-mcg tablet 1 tab PO DAILY zinc 15 mg Tablet 15 mg PO DAILY acetaminophen 500 mg capsule 1,000 mg PO Q8H PRN PRNQty: 90 0RF ibuprofen 600 mg tablet 600 mg PO TID PRN (Reason: pain) Qty: 30 0RF Discharge Instructions Instructions: Kidney Stone, Adult ED Additional Instructions: You were seen in the emergency department today for evaluation of right flank pain and were found to have an approximately 5 mm renal stone. It is in your ureter, which is why it is causing so many symptoms. Your urine did not show any sign of active infection, and it is safe for you to go home and attempt conservative management to pass the stone. This includes Tylenol and ibuprofen, lots of hydration, and Zofran as needed for nausea. I have started you on a medication called Flomax, please take this daily to encourage the flow of urine to push the stone forward. Please be cautious, this medication can make you feel lightheaded when you go from sitting to standing too quickly. Please follow-up with your primary care provider in the next few days to discuss this visit and any symptoms that change, worsen, or persist. Thank you for allowing us to be part of your care. HPI General Mode of arrival: ambulatory. Date/Time Provider Initiated Documentation: 01/08/25 12:21. Limitations to Documentation: no limitations. Information obtained by: patient and old records reviewed. HPI Narrative: HPI: This is a 69-year-old female patient with a past medical history significant for nephrolithiasis, presenting for evaluation of right flank pain. Patient reports that yesterday she started with an achiness in her right flank, and today had several episodes of severe nausea without vomiting. She reports that she has not felt this nauseated in quite a long time, felt clammy and sweaty during these events. She reports that she has a known 2 mm stone in her kidney, for which she follows with urology. She has not had any issues with kidney stones since her last visit. She does not take medications frequently in the outpatient environment, did not try thing for symptoms today. Reports that her nausea has improved but not resolved. Prior to last night she was in her normal state of health, has had no fevers, has not noted gross hematuria, denies chest pain or abdominal pain. Exam: Gen: Awake and alert, in no apparent distress HEENT: Non-icteric sclera Neck: Supple Lungs: No apparent respiratory distress, normal respiratory effort. CV: Appears well perfused, heart with regular rate and rhythm Abdomen: Non-distended, soft, nontender to palpation MSK: Moves 4 extremities without apparent limitation in ROM, no CVA tenderness Skin: Visualized skin without rashes, cyanosis. Neuro: Normal Gait, no obvious focal deficits or facial asymmetry. Speaks in full, clear sentences. Psych: Appropriate for situation. MDM: This is a 69-year-old female patient presenting for evaluation of right flank pain. My differential includes but is not limited to nephrolithiasis, certainly considered pyelonephritis or infected stone, considered other intra-abdominal pathologies including aortic disease, no significant abdominal pain to increase my concern for appendicitis, cholecystitis, pancreatitis. I considered musculoskeletal etiologies of this patient's pain, no overlying skin changes to suggest herpes zoster. At this time the patient declines medications for management of pain or nausea. Will obtain laboratory studies to include CBC, CMP, magnesium, troponin, and urinalysis. I will obtain a CT abdomen pelvis to better characterize any abnormalities. ED Course: I reviewed the patient's laboratory studies, which show leukocytosis, no anemia or thrombocytopenia. Chemistry panel without electrolyte derangement, mild elevation in BUN and creatinine compared to baseline, 20 and 1.4 respectively. No evidence of liver dysfunction, and urinalysis is positive for trace blood and leukocyte esterase, which is more concerning for renal stone than it is for acute infection. Additionally, the patient is afebrile, with minimal pain. CT reviewed by myself, showing a 5 mm obstructing stone in the proximal right ureter, with associated hydronephrosis. Otherwise no acute findings, I provided the patient with a prescription for Flomax and Zofran, she will take Tylenol and ibuprofen and strain her urine. I also counseled her to return immediately to care if she develops fever, worsening nausea or vomiting, or other concerning symptoms. She has a scheduled appointment with urology and will call that office to discuss this visit. At this time, the patient has had a full medical evaluation and is safe for discharge to home. They are hemodynamically stable, ambulatory, and tolerating PO. They are understanding of the follow-up plan and return precautions. They left our facility without incident. Talisha Lara MD Related Data Home Medications ?Medication ?Instructions ?Recorded ?Confirmed calcium carbonate (Calcium 500) 500 mg PO DAILY 09/17/20 01/08/25 latanoprost 0.005 % eye drops 1 drp ophthalmic (eye) DAILY 09/17/20 01/08/25 vxzafnbm-lym-gwlsa acid 0.4 1 tab PO DAILY 09/17/20 01/08/25 mg-lycopene 300 mcg-lutein 250 mcg tablet (Centrum Silver) albuterol sulfate 90 mcg/actuation 1 puff inhalation ONCE PRN 09/24/20 01/08/25 aerosol inhaler (Ventolin HFA) cholecalciferol (vitamin D3) 50 50 mcg PO DAILY 11/04/20 01/08/25 mcg (2,000 unit) tablet vitamin E 200 unit capsule 200 unit PO DAILY 11/04/20 01/08/25 acetaminophen 500 mg capsule 1,000 mg (2 x 500 mg) PO Q8H PRN 04/23/21 01/08/25 PRN #90 caps ibuprofen 600 mg tablet 600 mg PO TID PRN pain #30 tabs 04/23/21 01/08/25 zinc 15 mg tablet 15 mg PO DAILY 12/02/21 01/08/25 triamcinolone acetonide 0.1 % 1 applic topical DAILY PRN ezcema 09/06/24 01/08/25 topical cream chest #30 grams ondansetron 4 mg disintegrating 4 mg PO Q8H PRN #10 tabs 01/08/25 tablet tamsulosin 0.4 mg capsule (Flomax) 0.4 mg PO DAILY 2 weeks #14 caps 01/08/25 Previous Rx's ?Medication ?Instructions ?Recorded acetaminophen 500 mg capsule 1,000 mg (2 x 500 mg) PO Q8H PRN 04/23/21 PRN #90 caps ibuprofen 600 mg tablet 600 mg PO TID PRN pain #30 tabs 04/23/21 triamcinolone acetonide 0.1 % 1 applic topical DAILY PRN ezcema 09/06/24 topical cream chest #30 grams ondansetron 4 mg disintegrating 4 mg PO Q8H PRN #10 tabs 01/08/25 tablet tamsulosin 0.4 mg capsule (Flomax) 0.4 mg PO DAILY 2 weeks #14 caps 01/08/25 Allergies Allergy/AdvReac Type Severity Reaction Status Date / Time diclofenac AdvReac Severe Other (See Verified 01/08/25 12:22 Comment) General Stated Complaint: Abd Prob GÓMEZ: 3 Course Vital Signs Vital signs: Vital Signs Temperature 36.8 C 01/08/25 12:17 Pulse 93 H 01/08/25 12:17 Respiratory Rate 15 01/08/25 12:17 Blood Pressure 161/90 H 01/08/25 12:17 Pulse Oximetry 98 01/08/25 12:17 Temperature 36.8 C 01/08/25 12:21 Pulse 93 H 01/08/25 12:21 Respiratory Rate 15 01/08/25 12:21 Blood Pressure 161/90 H 01/08/25 12:21 Blood Pressure Position Sitting 01/08/25 12:21 Pulse Oximetry 98 01/08/25 12:21 Oxygen Delivery Method Room Air 01/08/25 12:21 Oxygen Flow Rate 0 01/08/25 12:21 Lab/Test Results Lab/Test Results: Laboratory Tests Range/Units 01/08/25 01/08/25 12:50 12:57 WBC (4.4-10.8) 10^3/uL 14.82 H RBC (3.93-5.22) 10^6/uL 4.48 Hgb (11.2-15.7) g/dL 13.5 Hct (36.0-46.0) % 40.9 MCV (80-95) fL 91 MCH (27.0-33.0) pg 30.1 MCHC (32.0-36.0) % 33.0 RDW (11.7-14.6) % 13.2 Plt Count (130-400) 10^3/uL 286 MPV (8.0-11.0) fL 9.1 Immature Gran % % 0.3 Neutrophils % % 87.0 Lymphocytes % % 7.0 Monocytes % % 5.0 Eosinophils % % 0.4 Basophils % % 0.3 Nucleated RBC % (0.0-0.3) % 0.0 Absolute Neutrophils (1.2-6.7) 10^3/uL 12.89 H Absolute Lymphocytes (1.2-3.4) 10^3/uL 1.04 L Absolute Monocytes (0.1-0.8) 10^3/uL 0.74 Absolute Eosinophils (0.0-0.7) 10^3/uL 0.06 Absolute Basophils (0.0-0.2) 10^3/uL 0.04 Urine Color (Yellow) Yellow Urine Clarity (Clear) Sl Cloudy Urine pH (5-8) 6.0 Ur Specific [place] (1.005-1.025) 1.025 Urine Protein (Neg-Trace) mg/dL Trace Urine Ketones (Negative) mg/dL 15 H Urine Blood (Negative) Trace-intact H Urine Nitrite (Negative) Negative Urine Bilirubin (Negative) Negative Urine Urobilinogen (Up to 0.2) mg/dL 0.2 Ur Leukocyte Esterase (Negative) Trace H Urine RBC (0-2) HPF 3-5 H Urine WBC (0-5) HPF 5-10 Ur Epithelial Cells (Negative) HPF Few Urine Crystals (Negative) HPF Negative Urine Bacteria (Negative) HPF Few Urine Casts (Negative) LPF Negative Urine Mucus (Negative) Negative Ur Culture Indicated? No Urine Glucose (Negative) mg/dL Negative Medical Decision Making Quality:SDOH Health Related Social Needs: No Data to Display PFSH All Active Problems (Updated 01/08/25 @ 14:26 by Talisha Lara MD) Calculus of proximal right ureter (Acute) Conductive hearing loss, external ear (Acute) Impacted cerumen, right ear (Acute) Arthritis of left knee (Chronic) Bartholin's gland infection (Acute) Encounter for screening colonoscopy (Acute) Multinodular Goiter (Acute) Multinodular Goiter (Acute) Renal calculi (Chronic) Right ureteral calculus (Acute) Elevated blood pressure reading without diagnosis of hypertension (Chronic) Family history of melanoma (Acute) Internal derangement of right knee (Acute) Contusion of right tibia (Acute) Pain, lower extremity (Acute) Smoker (Acute) Goiter (Chronic) Glaucoma (Chronic) Right thyroid nodule (Acute) PTSD (post-traumatic stress disorder) (Acute) Medical History Colon polyp, hyperplastic (~01/2024) Multiple benign nevi (~04/2023) 04/21/23 Derm -upper/lower Ext and trunk Seborrheic keratoses (~04/2023) 04/21/23 Derm -[facility] Derm, LN used on inflamed areas Surgical History History of colonoscopy (~01/2024) path sent Tear of lateral meniscus of right knee, current S/P Arthroscopy: 04/23/2021 Encounter for colonoscopy due to history of colonic polyp H/O tubal ligation 1979 at [facility] History of cholecystectomy (~2001) History of carpal tunnel release 2003 & 2004 Family History Aunt Breast cancer Aunt Colon cancer Aunt Breast cancer Brother Diabetes Brother Diabetes Sister Diabetes Father Heart disease Daughter Heart disease Social History Smoking/Tobacco Use Status: Current every day Tobacco Type: cigarettes Tobacco: How many years used: 25 Smoking risk assessment performed?: Yes Alcohol Intake: never Drug use: Never Substance use type: does not use Counseling given: No Adopted: No Caregiver/Support person: No Foster care: No Housing: apartment Number of Children: 2 Do you need help understanding health information?: Rarely current occupation: [employer] Sexually active: No Do you think of yourself as: straight/heterosexual Current gender identity: female What is your relationship status?: Panel score (0-1 are the most socially isolated patients): 0 What type of physical activity do you participate in: none Seatbelt use: always Drive intox or ride w/intox transit bus driver: No Working smoke detector in home: Yes Fire extinguisher in home: Yes Carbon monox detector in home: Yes Do you feel safe at home: Yes Do you feel safe in your relationship?: Yes Additional Social history: lives alone PAWSS Have you Been Recently Intoxicated or Drunk Within the Last 30 days?: No Have you Ever Experienced Previous Episodes of Alcohol Withdrawal?: No Have you ever Experienced Withdrawal Seizures?: No Have you ever Experienced Delirium Tremens(DT)s?: No Have you ever undergone Alcohol Rehabilitation Treatment (i.e, inpt ot outpatient treatment programs)?: No Have you ever Experienced Blackouts?: No Have you ever Combined Alcohol with other Downers within the last 90 days?: No Have you ever Combined Alcohol with any other Substance of Abuse during the last 90 days?: No Positive Blood Alcohol level on Presentation? [PCS.BAL]: No Evidence of Increased Autonomic Activity (i.e. HR>120, tremor, sweating, agitation, nausea)?: No Result: 0
[2025-01-08 13:19] LABS: ALT 11 U/L (14-59); AST 14 U/L (15-37); Albumin 3.7 g/dL (3.4-5.0); Alkaline Phosphatase 98 U/L (46-116); Anion Gap 7.7 mmol/L (3-11); BUN 20 mg/dL (7-18); Bilirubin, Total 0.51 mg/dL (0.2-1.0); CO2 30.3 mmol/L (21.0-32.0); CREATININE 1.4 mg/dL (0.55-1.02); Calcium 9.2 mg/dL (8.5-10.1); Chloride 103 mmol/L (98-107); Estimated GFR 40.22 (mL/min/1.73m2); Glucose 103 mg/dL (74-106); Magnesium 2.1 mg/dL (1.8-2.4); Potassium 3.7 mmol/L (3.5-5.1); Sodium 141 mmol/L (136-145); Total Protein 7.2 g/dL (6.4-8.2)
[2025-01-08] MEDS: Omnipaque 350 MG/ML 100 ML BTL IJ (13:50)
[2025-01-08] MEDS: Normal Saline - Diluent 50 ML VIAL IJ (13:51)
[2025-01-08 14:37] VITALS: BP 144/81; PULSE 76; RESP 16; TEMP 36.5; O2SAT 98
== END 2025-01-08 14:38 | disposition home or self-care (01) ==
PROVIDERS: Emergency Provider Emergency Medicine; PCP Nurse Practitioner
DX: R10.31 Right lower quadrant pain (principal); N20.1 Calculus of ureter; F17.210 Nicotine dependence, cigarettes, uncomplicated
CPT/HCPCS: 36415; 80053; 99285; 74177; 81003; 81015; 83735; 85025; 99284; J3490

== ENCOUNTER → 2025-01-16 15:18 | Outpatient (BNVA) | payer MEDICARE, BC, SELFPAY | PROVIDERS: PCP Nurse Practitioner; Referring Provider Nurse Practitioner; Visit Provider Nurse Practitioner Gerontology | DX: N20.1 Calculus of ureter (principal) | CPT/HCPCS: 99213 ==

== ENCOUNTER 2025-02-16 00:10 | Outpatient (CLI) | payer MEDICARE, BC, SELFPAY ==
--- NOTE | 2025-02-16 06:30 | DI.US_ITS ---
Exam(s) US RENAL EXAM: US RENAL CLINICAL HISTORY: monitoring hydro to right, calculus of prox rt ureter, N20.1. TECHNIQUE: Dyer scale, color and spectral Doppler were used. COMPARISON: CT CT ABDOMEN PELVIS W from 01/08/2025 FINDINGS: Renal size in cm: Right: 11.0. Left: 10.4. Echogenicity: Normal. Hydronephrosis: There is moderate right hydronephrosis. There was right hydronephrosis present on th e CT scan from 01/08/2025. There is no left hydronephrosis. Cyst or mass: No. Nephrolithiasis: There is an echogenic focus seen in the mid to lower pole of the right kidney measur ing 8 mm. There is a stone seen in the lower pole of the right kidney on the CT scan. There is also a 4 mm echogenic focus in the lower pole of the left kidney which may represent a nonobstructing sto ne. Other findings: None. Bladder:Normal. Ureteral jets: Right: Visualized and unremarkable. Left: Visualized and unremarkable. Prevoid vol:344 cc Postvoid vol:25 cc Renal color flow: Symmetric and within normal limits. IMPRESSION: 1. Moderate persistent right hydronephrosis. CT scan from 01/08/2025 showed a right UPJ stone causing hydronephrosis. A repeat CT scan may be considered for further evaluation. 2. Left nephrolithiasis without hydronephrosis. DATA REPOSITORY:
== END 2025-02-16 00:30 ==
LOC: DI 00:10
PROVIDERS: PCP Nurse Practitioner; Visit Provider Nurse Practitioner Gerontology
DX: N13.39 Other hydronephrosis (principal)
CPT/HCPCS: 76770

== ENCOUNTER → 2025-02-27 14:30 | Outpatient (BNVA) | payer MEDICARE, BC, SELFPAY | PROVIDERS: PCP Nurse Practitioner; Referring Provider Nurse Practitioner; Visit Provider Nurse Practitioner Gerontology | DX: N20.1 Calculus of ureter (principal); N13.30 Unspecified hydronephrosis | CPT/HCPCS: 99214 ==

== ENCOUNTER 2025-03-29 06:13 | Day surgery (SDC) | payer MEDICARE, BC, SELFPAY ==
--- NOTE | 2025-03-28 16:23 | ANES.PREOP_ITS ---
General Info Date of Service Date Performed: 03/29/25 Height: 5 ft 3 in Weight: 75.296 kg Body Mass Index (BMI): 29.4 Surgical Procedure: Operation Date: 03/29/25 07:40 Proposed Procedure Side Surgeon p Cystoscopy/? Laser/Retrograde/Ureteroscopy/ Stone Manipulation/ ? Stent Right Chase Baca MD Meds Allergies and Home Medications Allergies Allergy/AdvReac Type Severity Reaction Status Date / Time diclofenac AdvReac Severe Other (See Verified 03/29/25 06:25 Comment) Home Medication ?Medication ?Instructions ?Recorded calcium carbonate (Calcium 500) 500 mg PO DAILY 09/17/20 latanoprost 0.005 % eye drops 1 drp ophthalmic (eye) DAILY 09/17/20 hkktrsct-uav-ecunx acid 0.4 1 tab PO DAILY 09/17/20 mg-lycopene 300 mcg-lutein 250 mcg tablet (Centrum Silver) cholecalciferol (vitamin D3) 50 50 mcg PO DAILY 11/04/20 mcg (2,000 unit) tablet vitamin E 200 unit capsule 200 unit PO DAILY 11/04/20 acetaminophen 500 mg capsule 1,000 mg (2 x 500 mg) PO Q8H PRN 04/23/21 PRN #90 caps ibuprofen 600 mg tablet 600 mg PO TID PRN pain #30 tabs 04/23/21 zinc 15 mg tablet 15 mg PO DAILY 12/02/21 triamcinolone acetonide 0.1 % 1 applic topical DAILY PRN ezcema 09/06/24 topical cream chest #30 grams ondansetron 4 mg disintegrating 4 mg PO Q8H PRN #10 tabs 01/08/25 tablet albuterol sulfate 90 mcg/actuation 1 - 2 puff inhalation Q4H PRN 03/13/25 aerosol inhaler (Ventolin HFA) shortness of breath or wheezing #8.5 grams Current Visit Medications: Current Medications Generic Name Dose Route Start Last Admin Trade Name Freq PRN Reason Stop Dose Admin Ringer's Solution 1,000 mls @ 80 mls/hr 03/29/25 06:00 IV 03/29/25 23:59 INFUSION LITZY Cefazolin Sodium/Dextrose 2 gm in 50 mls @ 100 mls/hr 03/29/25 06:00 Ancef Duplex IVPB 03/29/25 23:59 PREOP LITZY PFSH Active Problems Active Problems: Problem Status Onset Code Conductive hearing loss, external ear Acute H90.2 Impacted cerumen, right ear Acute H61.21 Arthritis of left knee Chronic M17.12 Bartholin's gland infection Acute N75.8 Encounter for screening colonoscopy Acute Z12.11 Multinodular Goiter Acute E04.2 Multinodular Goiter Acute E04.2 Renal calculi Chronic N20.0 Right ureteral calculus Acute N20.1 Elevated blood pressure reading without diagnosis of hypertension Chronic R03.0 Family history of melanoma Acute Z80.8 Internal derangement of right knee Acute M23.91 Contusion of right tibia Acute S80.11XA Pain, lower extremity Acute M79.606 Smoker Acute F17.200 Goiter Chronic E04.9 Glaucoma Chronic H40.9 Right thyroid nodule Acute E04.1 PTSD (post-traumatic stress disorder) Acute F43.10 Medical History Medical History Colon polyp, hyperplastic (~01/2024) Multiple benign nevi (~04/2023) 04/21/23 [facility] Derm -upper/lower Ext and trunk Seborrheic keratoses (~04/2023) 04/21/23 Derm -[facility] Derm, LN used on inflamed areas Medical History Comments:: pt. states her dad had a hard time coming out of anesthesia. Surgical History Surgical History History of colonoscopy (~01/2024) path sent Tear of lateral meniscus of right knee, current S/P Arthroscopy: 04/23/2021 Encounter for colonoscopy due to history of colonic polyp H/O tubal ligation 1979 at [facility] History of cholecystectomy (~2001) History of carpal tunnel release 2003 & 2004 Tobacco Smoking/Tobacco Use Status: Current every day Tobacco Type: cigarettes Smoking cigarettes per day: 10 Alcohol Alcohol Intake: never Substance Use Substance use: Never Substance use type: does not use Vital Signs and Lab Results Vital Signs Most Recent Vital Signs in EMR: Temp Pulse Resp BP Pulse Ox 36.5 C 84 18 158/82 H 100 03/29/25 06:29 03/29/25 06:29 03/29/25 06:29 03/29/25 06:29 03/29/25 06:29 Lab Results Blood Type / Crossmatch: No Data to Display Complete Blood Count: No Data to Display Complete Metabolic Panel: No Data to Display Liver Function Panel: No Data to Display Coagulation Panel: No Data to Display Cardiac Panel: No Data to Display Arterial Blood Gas: No Data to Display Venous Blood Gas: No Data to Display Pancreas Panel: No Data to Display Thyroid Panel: No Data to Display Infectious Disease: No Data to Display Blood Cultures: No Data to Display Toxicology Panel: No Data to Display Anesthesia Assessment and Plan Anesthesia History Personal History: No History of Anesthesia Complications Family History: No Family History of Anesthesia Complications Exercise Tolerance Exercise Tolerance: Metabolic Equivalents>4 Cardiac & Pulmonary Exam Cardiac Exam: Normal S1/S2 Heart Sounds Pulmonary Exam: Clear Bilateral Breath Sounds Implantable Cardiac Device Does patient have a Pacemaker or an ICD?: No Airway Exam Known Difficult Airway: No Mallampati Class: 2 Mouth Opening: Normal (> 3cm) Thyromental Distance: Greater than 3 cm Neck Range of Motion: Full ROM Neck Circumference: Normal Teeth Condition: Normal Dentition ASA Classification ASA Score: ASA 2 Emergency Case?: No NPO Status NPO Status: NPO Clears >2 hours, Solids >8 hours Anesthesia Plan Resuscitation Status: Full Code Anesthesia Technique: General Anesthesia Airway Planned: LMA Monitors Used: Standard Monitors Preoperative Comments:: 69 yo female for cysto/stone removal/stent. Sig PMHx: RAD (albuterol), goiter, glaucoma, PTSD, smoker. Denies reflux. Approp NPO. Previous Anes: - colo, prop natural airway, no issues. - knee scope, chloro spinal, no sedation
[2025-03-29] VITALS (22 sets, daily range): BP systolic 91–158; BP diastolic 41–82; PULSE 53–84; RESP 10–24; TEMP 36.3–36.5; O2SAT 92–100; BMI 29.4
--- NOTE | 2025-03-29 06:53 | W.PM.HP.N ---
Date of service: 03/29/25 Time of Service: 06:53 Assessment and Plan Assessment and plan (1) Right ureteral calculus: Status: Acute (2) Renal calculi: Status: Chronic Assessment and plan: We will plan cystoscopy, retrograde pyelogram, possible ureteroscopy and holmium laser lithotripsy of any visible stones. At a minimum, we will place a ureteral stent and perhaps need to do a staged procedure if I am not able to access her stones today. History of Present Illness History of Present Illness Chief Complaint: Right ureteral stone Narrative: This is a 69-year-old woman who is followed for calcium based kidney stones. She had an episode of right sided flank pain which necessitated a trip to the emergency department. Patient CT scan done through the ER demonstrated an obstructing right UPJ stone. The patient has not passed the stone as far she is aware. She no longer has flank pain, but on follow-up ultrasound, she has persistent right hydronephrosis. It is presumed that her ureteral stone is still present and is causing at least partial obstruction. She presents now for stone manipulation. Review of Systems Narrative: No fevers or chills Glaucoma. Decreased hearing acuity. Goiter. No diabetes No shortness of breath, cough or hemoptysis No chest pain or palpitations No nausea, vomiting, hepatitis, ulcers, jaundice No seizures, strokes or peripheral neuropathy No bleeding disorders or anemia No gout PFSH All Active Problems Conductive hearing loss, external ear (Acute) Impacted cerumen, right ear (Acute) Arthritis of left knee (Chronic) Bartholin's gland infection (Acute) Encounter for screening colonoscopy (Acute) Multinodular Goiter (Acute) Multinodular Goiter (Acute) Renal calculi (Chronic) Right ureteral calculus (Acute) Elevated blood pressure reading without diagnosis of hypertension (Chronic) Family history of melanoma (Acute) Internal derangement of right knee (Acute) Contusion of right tibia (Acute) Pain, lower extremity (Acute) Smoker (Acute) Goiter (Chronic) Glaucoma (Chronic) Right thyroid nodule (Acute) PTSD (post-traumatic stress disorder) (Acute) Medical History Colon polyp, hyperplastic (~01/2024) Multiple benign nevi (~04/2023) 04/21/23 [facility] -upper/lower Ext and trunk Seborrheic keratoses (~04/2023) 04/21/23 [facility] -[facility] Derm, LN used on inflamed areas Surgical History History of colonoscopy (~01/2024) path sent Tear of lateral meniscus of right knee, current S/P Arthroscopy: 04/23/2021 Encounter for colonoscopy due to history of colonic polyp H/O tubal ligation 1979 at [facility] History of cholecystectomy (~2001) History of carpal tunnel release 2003 & 2004 Family History Aunt Breast cancer Aunt Colon cancer Aunt Breast cancer Brother Diabetes Brother Diabetes Sister Diabetes Father Heart disease Daughter Heart disease Social History Smoking/Tobacco Use Status: Current every day Tobacco Type: cigarettes Tobacco: How many years used: 25 Smoking risk assessment performed?: Yes Alcohol Intake: never Drug use: Never Substance use type: does not use Counseling given: No Adopted: No Caregiver/Support person: No Foster care: No Housing: apartment Number of Children: 2 Do you need help understanding health information?: Rarely 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, [employer] Sexually active: No Do you think of yourself as: straight/heterosexual Current gender identity: female What is your relationship status?: Panel score (0-1 are the most socially isolated patients): 0 What type of physical activity do you participate in: none Seatbelt use: always Drive intox or ride w/intox 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: No Working smoke detector in home: Yes Fire extinguisher in home: Yes Carbon monox detector in home: Yes Do you feel safe at home: Yes Do you feel safe in your relationship?: Yes Additional Social history: lives alone Meds Allergies and Home Medications Allergies Allergy/AdvReac Type Severity Reaction Status Date / Time diclofenac AdvReac Severe Other (See Verified 03/29/25 06:25 Comment) Home Medications ?Medication ?Instructions ?Recorded ?Confirmed ?Type calcium carbonate (Calcium 500) 500 mg PO DAILY 09/17/20 03/29/25 History latanoprost 0.005 % eye drops 1 drp ophthalmic (eye) DAILY 09/17/20 03/29/25 History hopjuzqg-ymk-jvoia acid 0.4 1 tab PO DAILY 09/17/20 03/29/25 History mg-lycopene 300 mcg-lutein 250 mcg tablet (Centrum Silver) cholecalciferol (vitamin D3) 50 50 mcg PO DAILY 11/04/20 03/29/25 History mcg (2,000 unit) tablet vitamin E 200 unit capsule 200 unit PO DAILY 11/04/20 03/29/25 History acetaminophen 500 mg capsule 1,000 mg (2 x 500 mg) PO Q8H PRN 04/23/21 03/29/25 Rx PRN #90 caps ibuprofen 600 mg tablet 600 mg PO TID PRN pain #30 tabs 04/23/21 03/29/25 Rx zinc 15 mg tablet 15 mg PO DAILY 12/02/21 03/29/25 History triamcinolone acetonide 0.1 % 1 applic topical DAILY PRN ezcema 09/06/24 03/29/25 Rx topical cream chest #30 grams ondansetron 4 mg disintegrating 4 mg PO Q8H PRN #10 tabs 01/08/25 03/29/25 Rx tablet albuterol sulfate 90 mcg/actuation 1 - 2 puff inhalation Q4H PRN 03/13/25 03/29/25 Rx aerosol inhaler (Ventolin HFA) shortness of breath or wheezing #8.5 grams Exam Const General: cooperative Neck Neck: supple Resp Effort & Inspection: normal respiratory effort Auscultation: clear to auscultation bilaterally Cardio Rate: regular rate Rhythm: regular rhythm GI Palpation: soft and no masses Neuro General: patient alert, patient awake and patient oriented x3 Results Last Vital Signs Temp 36.5 C 03/29/25 06:29 Pulse 84 03/29/25 06:29 Resp 18 03/29/25 06:29 BP 158/82 H 03/29/25 06:29 Pulse Ox 100 03/29/25 06:29 Time Spent Time spent with Patient: <40 minutes Time was spent: other
[2025-03-29] MEDS: Lactated Ringers 1,000 ML 80 ML IV (06:56)
[2025-03-29] MEDS: ceFAZolin 2 GM/50 ML BAG IVPB (07:27)
[2025-03-29] MEDS: Lidocaine 2% Jelly 6 ML SYR (07:52)
[2025-03-29] MEDS: Omnipaque 300 MG/ML 50 ML BTL (08:15)
--- NOTE | 2025-03-29 08:23 | DI.RAD_ITS ---
Exam(s) XR RETROGRADE IN OR EXAM: XR RETROGRADE IN OR CLINICAL HISTORY: RIGHT URETERAL STONE. TECHNIQUE: Fluoroscopy was provided for the referring physician for guidance with performing retrogr myriam procedure. COMPARISON: US US RENAL from 02/16/2025 FINDINGS: Please see procedure note for details. Fluoro time: 70.5 seconds RADIATION DOSE DELIVERED: sergo Dela Cruz=15.8 mGy
--- NOTE | 2025-03-29 08:24 | W.PM.DSUDISC ---
Date of service: 03/29/25 Discharge Plan Disposition Patient Disposition: Home Discharge Details Reason For Visit: ureteroscopy Attending Provider: Chase Baca Primary Care Provider: Hazel Dunn Home Meds and New Rx's Prescriptions: No Action cholecalciferol (vitamin D3) 50 mcg (2,000 unit) tablet 50 mcg PO DAILY vitamin E 200 unit capsule 200 unit PO DAILY triamcinolone acetonide 0.1 % cream 1 applic topical DAILY PRN (Reason: ezcema chest) Qty: 30 6RF latanoprost 0.005 % drops 1 drp ophthalmic (eye) DAILY Rx Instructions: Right Eye calcium carbonate [Calcium 500] 500 mg calcium (1,250 mg) tablet 500 mg PO DAILY Centrum Silver 0.4-300-250 mg-mcg-mcg tablet 1 tab PO DAILY albuterol sulfate [Ventolin HFA] 90 mcg/actuation HFA aerosol inhaler 1 - 2 puff inhalation Q4H PRN (Reason: shortness of breath or wheezing) Qty: 8.5 0RF Rx Instructions: PLEASE COVER BRAND OR GENERIC WHICH EVER THE INSURANCE WILL COVER. zinc 15 mg Tablet 15 mg PO DAILY acetaminophen 500 mg capsule 1,000 mg PO Q8H PRN PRNQty: 90 0RF ibuprofen 600 mg tablet 600 mg PO TID PRN (Reason: pain) Qty: 30 0RF ondansetron 4 mg tablet,disintegrating 4 mg PO Q8H PRNQty: 10 0RF Discharge Instructions Additional Instructions: There is no need to strain your urine. You have a stent in the right ureter. As long as the stent is in place, you may have blood in the urine, urinate more frequently than usual and have an urgency to urinate. Followup @ 2 weeks for cystoscopy and stent removal. This procedure can be done either in the office or in the operating room Discharge Orders Discharge Orders: Discharge Order (Routine); Ordered 03/29/25 Ordered By: Chase Baca DS: Diagnosis Discharge Diagnosis (1) Right ureteral calculus: Status: Acute (2) Renal calculi: Status: Chronic
--- NOTE | 2025-03-29 08:29 | ROE_ITS ---
Operative Note Operative Note PRE-OP DIAGNOSIS: Right ureteral stone POST-OP DIAGNOSIS: same PROCEDURE: Cystoscopy, right retrograde pyelogram, right flexible ureteroscopy, holmium laser lithotripsy of ureteral stone, extraction of stone fragments, insert right ureteral stent SURGEON: Chase Baca ANESTHESIA TYPE: Local By Surgeon and General LMA/ETT Refer to Anesthesia Record ESTIMATED BLOOD LOSS: 5 PATHOLOGY: other (Right ureteral stone fragments for chemical analysis) COMPLICATIONS: None Patient was transported to: PACU Patient's condition: stable Implants: 6 Gu[place]an by 22 to 30 cm right ureteral stent Findings: This is a 69-year-old woman who has a history of kidney stones. She has never required surgery for stones in the past. She had an ER visit for renal colic about 2 or 3 months ago. She was found to have a right proximal ureteral stone. She was treated conservatively but never passed the stone. Her symptoms improved but she continued to have right hydronephrosis on ultrasound. She presents for stone manipulation Procedure Description: The patient was given preoperative antibiotics and brought to the operating room on 03/29/2025. After successful induction of general anesthesia, she was placed in the dorsal lithotomy position. Her genitalia was prepped and draped. 2% Xylocaine jelly was instilled into the urethra. A 22 [place]an rigid cystoscope was passed through the urethra into the bladder. The bladder was inspected with the 30 degree lens. Both ureteral orifices appeared normal. No blood was seen coming from either orifice. The right ureteral orifice was cannulated with a 5 Guinean access catheter. A retrograde pyelogram was obtained by injecting Omnipaque through the access catheter under fluoroscopic guidance. A filling defect was outlined in the right proximal ureter. I then passed a guidewire through the catheter and initially had quite a bit of difficulty advancing the wire above the level of the stone. Ultimately, with a an angled tipped catheter, I was able to get past the stone. I then passed the dual-lumen catheter over the wire and positioned a second wire. We chose one of the wires as a working wire and the second 1 as a safety wire. I removed the dual-lumen catheter and passed a ureteral access sheath over the working wire leaving the safety wire in place. I then passed the flexible ureteroscope through the ureteral access sheath. In the proximal ureter, we identified a stone that was embedded in the ureteral wall. I treated the stone with a 272 ?m holmium laser fiber. We used dusting settings to fragment the stone. I was then able to grasp a few small fragments, extract them and a 0 tip stone basket and send the fragments for chemical analysis. Ultimately, I was able to bump the stone fragments back up into the renal pelvis. I then grasped them in the ZeroTip stone basket and removed them. At the completion of the procedure, only multiple small fragments remained. I removed the ureteroscope and the ureteral access sheath. No obvious ureteral injury was identified. Because of the edema associated with the stone, we elec axel to place a 6 Guinean variable length stent over the guidewire. The stent was positioned with the proximal end curled in the renal pelvis and the distal end curled in the bladder. The positioning of the stent was confirmed both fluoroscopically and cystoscopically. The patient tolerated the procedure well with no complications. She was taken to the recovery room in stable condition. Date of Procedure: 03/29/25
--- NOTE | 2025-03-29 08:49 | W.ANESPOSTOP ---
Postoperative Evaluation Date, Time and Location Date Performed: 03/29/25 Time Performed: 08:49 Patient Location: PACU Vital Signs Most Recent Imported Vital Signs: Most Recent Vital Signs Temp Pulse Resp BP Pulse Ox 36.3 C L 84 18 158/82 H 100 03/29/25 08:43 03/29/25 06:29 03/29/25 06:29 03/29/25 06:29 03/29/25 06:29 Pain Score Most Recent Pain Score: Most Recent Pain Score Pain Level 0 03/29/25 06:29 Assessment Mental Status: Awake (Alert & Oriented to Patient Baseline) Airway and Respiratory Function: Patent airway with normal (patient baseline) respiratory exam Cardiovascular Function: Hemodynamically Stable Hydration Status: Adequately Hydrated Nausea & Vomiting: No Nausea or Vomiting Pain: Pain is tolerable per patient Peripheral Nerve Block: Patient did not receive a nerve block
[2025-03-29] MEDS: Phenazopyridine 200 MG TAB PO (09:24)
[2025-04-09 14:09] LABS: Source: Right Ureter
== END 2025-03-29 10:29 | disposition home or self-care (01) ==
PROVIDERS: PCP Nurse Practitioner; Visit Provider Urology
PROC: (CPT 52356; principal; 2025-03-29 07:30)
DX: N13.2 Hydronephrosis with renal and ureteral calculous obstruction (principal); E04.2 Nontoxic multinodular goiter; F17.210 Nicotine dependence, cigarettes, uncomplicated; F43.10 Post-traumatic stress disorder, unspecified
CPT/HCPCS: 52356; 74420; 82365; J0131; J0690; J1885; J2371; J2405; J2704; Q9967

== ENCOUNTER 2025-04-11 00:52 | Outpatient (CLI) | payer MEDICARE, BC, SELFPAY ==
--- NOTE | 2025-04-11 06:30 | DI.RAD_ITS ---
Exam(s) XR ABDOMEN FLAT PLATE EXAM: 2D digital imaging was performed. CLINICAL HISTORY: monitoring renal calculi,z87.442. COMPARISON: CR XR ABDOMEN FLAT PLATE from 03/28/[address] ABDOMEN PELVIS W from 01/08/2025 XA XR RETROGRADE IN OR from 03/29/2025 TECHNIQUE: Supine views of the abdomen was performed. One images were obtained. FINDINGS: LUNG BASES: Clear. BOWEL GAS PATTERN: Nondistended. FREE AIR: None. CALCIFICATIONS: There are several calcifications seen in the pelvis which are unchanged compared to t he x-ray from 03/28/2024. No new calcifications are seen along the course of the right nephroureteral stent. There are faint densities projected over the inferior pole of the left kidney which may repr esent small stones. OSSEOUS STRUCTURES: Normal for age. OTHER FINDINGS: There are surgical clips in the right upper quadrant of the abdomen. The findings cody ggest prior cholecystectomy. IMPRESSION: 1. Right nephroureteral stent. No calcifications are seen along the ureteral stent. 2. Multiple pelvic calcifications which appears stable compared to the prior examination from 03/28/20 24 and are likely phleboliths. 3. Question of 2 faint density seen at the inferior pole of the left renal shadow which may represent nonobstructing stones. DATA REPOSITORY: RADIATION DOSE DELIVERED:
== END 2025-04-11 01:12 ==
PROVIDERS: PCP Family Medicine; Visit Provider Nurse Practitioner Gerontology
DX: Z87.442 Personal history of urinary calculi (principal); N20.0 Calculus of kidney
CPT/HCPCS: 74018

== ENCOUNTER → 2025-04-13 12:42 | Outpatient (BNVA) | payer MEDICARE, BC, SELFPAY | PROVIDERS: PCP Nurse Practitioner; Referring Provider Nurse Practitioner; Visit Provider Urology | DX: N20.0 Calculus of kidney (principal); N20.1 Calculus of ureter; Z98.890 Other specified postprocedural states | CPT/HCPCS: 81003; 52000 ==

== ENCOUNTER 2025-05-28 00:24 | Outpatient (CLI) | payer MEDICARE, BC, SELFPAY ==
--- NOTE | 2025-05-28 07:45 | DI.US_ITS ---
Exam(s) US RENAL EXAM: US RENAL CLINICAL HISTORY: ? hydronephrosis after ureteroscopy,calculus of proximal rt ureter,n20.1. TECHNIQUE: Dyer scale imaging and color doppler were used. COMPARISON: CT CT ABDOMEN PELVIS W from 01/08/2025 US US RENAL from 02/16/2025 XA XR RETROGRADE IN OR from 03/29/2025 CR XR ABDOMEN FLAT PLATE from 04/11/2025 FINDINGS: Right kidney: 10.8cm Echogenicity: Normal Hydronephrosis: Moderate, similar to prior. Cyst or mass: No Nephrolithiasis: No Left kidney: 11.5cm Echogenicity: Normal Hydronephrosis: No Cyst or mass: No Nephrolithiasis: No Bladder:unremarkable. Prevoid vol:68 cc IMPRESSION: Persistent moderate right hydronephrosis. DATA REPOSITORY:
== END 2025-05-28 00:44 ==
PROVIDERS: PCP Family Medicine; Visit Provider Urology
DX: N20.1 Calculus of ureter (principal)
CPT/HCPCS: 76770

== ENCOUNTER → 2025-06-05 13:45 | Outpatient (BNVA) | payer MEDICARE, BC, SELFPAY | PROVIDERS: PCP Nurse Practitioner; Referring Provider Nurse Practitioner; Visit Provider Urology | DX: N20.1 Calculus of ureter (principal); N20.0 Calculus of kidney; M54.50 Low back pain, unspecified; G89.29 Other chronic pain | CPT/HCPCS: 99213 ==

== ENCOUNTER 2025-06-11 01:10 | Outpatient (CLI) | payer MEDICARE, BC, SELFPAY ==
--- NOTE | 2025-06-11 07:30 | DI.CT_ITS ---
Exam(s) CT ABDOMEN PELVIS WO EXAM: CT ABDOMEN PELVIS WO CLINICAL HISTORY: ? ureteral stone,renal calculi,rt ureteral calculus,n20.1,n20.0. TECHNIQUE: Imaging Protocol: Axial computed tomography images with coronal and sagittal reformatted images were created and reviewed CONTRAST MATERIAL: Intravenous: none Oral: None COMPARISON: CT CT ABDOMEN PELVIS W from 01/08/2025 FINDINGS: VISUALIZED LUNG BASES: Mild pleural based infiltrate in the lateral basal segment of the right lower lobe is unchanged. No pleural effusions.. ABDOMEN: There is no ascites. LIVER: There are no obvious focal hepatic lesions evident of this noninfused study. GALLBLADDER/BILIARY: The gallbladder is again noted be surgically absent. CBD is not dilated. PANCREAS: No evidence of pancreatic mass nor dilatation of the pancreatic duct. SPLEEN: Spleen is not enlarged. No obvious intrasplenic lesions. ADRENALS: Right adrenal gland unremarkable some hypertrophy of medial limb of the left adrenal gland is again noted. KIDNEYS:There are 2 tiny adjacent nonobstructive calculi in lower pole calyx of the left kidney. No other left kidney findings. On the right side the previously present calculus at the upper ureter UPJ junction is no longer seen (instrumentation performed 03/29/2025). There is a single remaining lower level 3 millimeter calculus in the right kidney, unchanged in size and position.. There presently no calculi seen along the course of the nondilated right ureter nor at the UVJ nor radiopaque calculi seen within the collapsed urinary bladder. There are no solid renal masses.. ABDOMINAL AORTA: Abdominal aorta is not enlarged. LYMPH NODES: There is no retroperitoneal nor paraaortic adenopathy. ABDOMINAL WALL: No evidence of significant anterior abdominal wall nor inguinal hernia. GI: There is no evidence of bowel obstruction, free air, nor abscess. PELVIS: LYMPH NODES: There is no intrapelvic nor inguinal adenopathy. GI: Appendix unremarkable.There are sigmoid diverticuli but no evidence of acute diverticulitis. URINARY BLADDER: Collapsed. Does not contain obvious radiopaque calculi. REPRODUCTIVE: Uterus and adnexal regions appear age-appropriate. There are no adnexal masses and no free fluid in the pelvis. OSSEOUS: No significant osseous lesions. No fractures. There is advanced chronic disc space narrowing at L5-S1 level. There is also mild degenerative anterolisthesis of L4 upon L5 related to facet arthropathy IMPRESSION: 1. Compared to the prior CT scan of 01/08/2025 the previously present calculus at the right ureteropelvic junction is no longer seen and there are no radiopaque calculi seen throughout the length of the nondilated right ureter nor within the collapsed urinary bladder. 2. There is bilateral nephrolithiasis. There is again noted a single remaining lower pole level calculus in the right kidney measuring approximately 3-4 mm. There are also 2 tiny adjacent nonobstructive calculi in the lower pole calyx of the opposite-left kidney. 3. Previous cholecystectomy. The biliary tree is not dilated. 4. There is hypertrophy of the medial limb of the left adrenal gland again noted. RADIATION DOSE DELIVERED: 541.92mGy.cm Total DLP DATA REPOSITORY: All CT scans at this facility are submitted to the National Radiology Data Registry (NRDR) Dose Index Registry (DIR) with the [employer] (ACR). RADIATION OPTIMIZATION: All CT scans at this facility use at least one of these dose optimization techniques: automated exposure control; mA and/or kV adjustment per patient size (includes targeted exams where dose is matched to clinical indication); or iterative reconstruction.
== END 2025-06-11 01:30 ==
PROVIDERS: PCP Family Medicine; Visit Provider Urology
DX: N20.0 Calculus of kidney (principal); N20.1 Calculus of ureter
CPT/HCPCS: 74176

== ENCOUNTER → 2025-07-06 08:11 | Outpatient (BNVA) | payer MEDICARE, BC, SELFPAY | PROVIDERS: PCP Nurse Practitioner; Referring Provider Nurse Practitioner; Visit Provider Urology | DX: N20.0 Calculus of kidney (principal) | CPT/HCPCS: 99213 ==

== ENCOUNTER 2025-07-26 04:03 | Outpatient (CLI) | payer MEDICARE, BC, SELFPAY ==
--- NOTE | 2025-07-26 06:30 | DI.CTLCSR_ITS ---
Exam(s) CT CHEST LUNG CANCER SCREEN EXAM: CT CHEST LUNG CANCER SCREEN CLINICAL HISTORY: Screening for lung cancer,cigarette smoker, f17.210 TECHNIQUE: Imaging Protocol: Axial computed tomography images with coronal and sagittal reformatted images were created and reviewed. Lung Computer Aided Detection (CAD) was utilized. COMPARISON: CT CT ABDOMEN PELVIS WO from 06/11/2025 FINDINGS: Tracheobronchial tree: Patent where visualized. No bronchiectasis. Pulmonary parenchyma: No consolidation or dominant measurable mass. No architectural distortion. Lung Nodules: There are no suspicious pulmonary nodules. Mediastinum and Aga: No dominant adenopathy or fluid collection. The esophagus is unremarkable.There is a small hiatal hernia. Lymph nodes: Unremarkable. Pleura: No effusion or pneumothorax. Heart: The heart is not dilated. Very mild coronary artery calcification is present. No pericardial effusion. Aorta: Thoracic aorta non-dilated.Mild atherosclerotic calcification is present. Upper abdomen: Status post cholecystectomy. Soft Tissues: Unremarkable. Bones: Within normal limits. IMPRESSION: There are no suspicious pulmonary nodules. Lung RADS Cat 1 - Negative: No nodules and definitely benign nodules Lung-RADS 1.0 CATEGORIES: Category 0 - Prior chest CT exam(s) being located for comparison. Category 1 - Annual screening in 12 months. No nodules or definitely benign nodules. Category 2 - Annual screening in 12 months. Benign appearance. Nodules with low likelihood of becoming active cancer. Category 3 - 6-month follow-up. Probably benign. Short-term follow-up suggested. Nodules with low likelihood of becoming active cancer. Category 4A - 3-month follow-up and CT/PET if >8 mm in size. Suspicious finding. Findings which require additional testing. Category 4B - Findings which require additional testing and tissue sampling. Suspicious finding. Category 4X - Category 3 or 4 nodules with additional features or imaging findings that increases the suspicion of malignancy. Modifier S- Potentially clinically significant finding. (Non lung cancer) RADIATION DOSE DELIVERED: 28.64mGy.cm Total DLP 28.64mGy.cmTotal DLP DATA REPOSITORY: All CT scans at this facility are submitted to the National Radiology Data Registry (NRDR) Dose Index Registry (DIR) with the [employer] (ACR). RADIATION OPTIMIZATION: All CT scans at this facility use at least one of these dose optimization techniques: automated exposure control; mA and/or kV adjustment per patient size (includes targeted exams where dose is matched to clinical indication); or iterative reconstruction.
--- NOTE | 2025-07-26 06:39 | DI.MAMMO_ITS ---
Exam(s) MAMMO SCREENING EXAM: MAMMO SCREENING CLINICAL HISTORY: screening,z12.39 TECHNIQUE: Bilateral full field digital CC and MLO mammographic images were obtained with 3D tomosynthesis and utilizing computer aided detection (CAD). COMPARISON: Comparison is made with prior examinations. FINDINGS: Masses/Architectural Distortion: No suspicious masses or areas of architectural distortion are present. There is a stable nodule in the retroareolar region of the left breast. Microcalcifications: No suspicious pleomorphic-type are seen. Skin Thickening/Nipple Retraction: None. IMPRESSION: 1. No significant interval change with no specific features of malignancy noted. 2. Unless there is more urgent need, screening mammography is recommended, as per [place] [employer] guidelines. BI-RADS Category 2 - Benign Findings Breast Density - Category B - There are scattered areas of fibroglandular density. Breast density Category C or D implies that the patient has dense breast tissue. Dense breast tissue can make it harder to find cancer on a mammogram. Dense breast tissue is also associated with an increased risk of breast cancer. This information about the result of the mammogram report was provided to the patient to raise their awareness. Use this report when you speak with the patient about their risks for breast cancer, which includes their family history. At that time, you may recommend additional screening tests (Ultrasound or MRI) as these tests may add significant information. A negative radiographic report should not delay biopsy if a dominant or clinically suspicious mass is present. Up to ten percent of cancers are not identified on mammography. A negative report may reinforce clinical impression. Adenosis and dense breasts may obscure an underlying neoplasm. False positive reports average 6 to 10%. Patient will receive a letter notifying them of these results.
--- NOTE | 2025-07-26 12:00 | DI.DEXA_ITS ---
Exam(s) XR DEXA BONE DENSITY W/WO STORM EXAM: XR DEXA BONE DENSITY W/WO STORM CLINICAL HISTORY: osteoporosis screening,asymptomatic postmenopausal status,z78.0 TECHNIQUE: COMPARISON: CR XR DEXA BONE DENSITY W/WO STORM from 07/15/2023 FINDINGS: Lateral Spine Image: Unremarkable. No compression deformities identified. Left hip: Total T-Score: -1.3. This compares to -1.6 on the prior examination. Total Z-Score: 0.3 T- and Z-scores: Findings are consistent with osteopenia. Lumbar Spine: Total T-Score: -0.5. This compares to -0.7 on the prior examination. Total Z-Score: 1.7 T- and Z-scores: Within normal limits. There is osteoporosis noted in the left forearm with a total T-score of -2.6 and a Z-score of -0.5. IMPRESSION: 1. There is no evidence of osteoporosis in the left hip per lumbar spine. 2. Osteoporosis is noted in the left forearm.
== END 2025-07-26 04:23 ==
PROVIDERS: PCP Family Medicine; Visit Provider Family Medicine
DX: Z12.31 Encounter for screening mammogram for malignant neoplasm of breast (principal); Z78.0 Asymptomatic menopausal state; Z13.820 Encounter for screening for osteoporosis; F17.210 Nicotine dependence, cigarettes, uncomplicated; Z12.2 Encounter for screening for malignant neoplasm of respiratory organs
CPT/HCPCS: 71271; 77063; 77067; 77080

== ENCOUNTER → 2025-10-17 00:03 | Outpatient (CLI) | payer MEDICARE, BC, SELFPAY ==
--- NOTE | 2025-10-17 06:15 | DI.US_ITS ---
Exam(s) US THYROID EXAM: US THYROID CLINICAL HISTORY: Assess for change,multinodular goiter,e04.2. TECHNIQUE: Ultrasound thyroid performed using standard protocol. COMPARISON: Prior ultrasound 08/05/2023. Prior ultrasound of 10/26/2024 This patient has apparently had 2 prior biopsies which were apparently negative for malignancy. These were apparently performed in [place]. FINDINGS: Bilateral nodules again noted RIGHT THYROID LOBE: Measures 1.9 cm AP x 2.0 cm wide x 6.1 cm craniocaudal Nodule #1. This is the more superior nodule Size: Measures 2.0 x 1.3 x 1.4 cm. Grading of this nodule is as follows: Composition: Solid-2 points Echogenicity: Hypoechoic-2 points Shape: Wider than taller-0 points Margin: Smooth- 0 points Echogenic Foci: None-0 points Total Points for this nodule: 4 ACR Ti-Rads Category: TR4 This TR 4 level nodule qualifies for ultrasound-guided FNA as it measures greater than 1.5 cm. Nodule #2. This nodule is at the mid level on the right lobe Size: Measures 1.9 x 1.4 x 1.6 cm Grading of this nodule is as follows: Composition: Solid-2 points Echogenicity: Hypoechoic- 2 points Shape: Wider than taller- 0 points Margin: Smooth-0 points Echogenic Foci: Contains peripheral calcifications-2 points Total points for this nodule: 6 ACR Ti-Rads Category: TR4 This TR 4 level nodule qualifies for ultrasound-guided FNA as it measures greater than 1.5 cm. Nodule #3. This is the most inferior of the 3 nodules in the right lobe. Size: Measures 1.0 x 1.0 x 1.1 cm Grading of this nodule is as follows: Composition: Solid-2 points Echogenicity: Isoechoic-1 point Shape: Wider than taller- 0 points Margin: Smooth-0 points Echogenic Foci: Contains a macro calcification-1 point Total points for this nodule: 4 ACR Ti-Rads Category: 4 This TR 4 level nodule can be followed as it measures less than 1.5 cm. ISTHMUS: Normal thickness. There are no nodules in the isthmus. LEFT THYROID LOBE: Measures 1.5 cm AP x 1.3 wide x 0 cm craniocaudal There are 2 nodules located in the inferior half of the left lobe. Nodule #1. This is the more inferior of the 2 nodules in the left lobe Size: Measures 0.9 x 0.6 x 0.9 cm Grading of this nodule is as follows: Composition: Solid-2 points Echogenicity: Hypoechoic-2 points Shape: Wider than taller-0 points Margin: Smooth- points Echogenic Foci: None-0 points Total points for this nodule: 4 ACR Ti-Rads Category: 4 This TR 4 level nodule can be followed as it measures less than 1.5 cm. Nodule #2. This small solid nodule is adjacent to the other nodule. Size: Measures 0.7 x 0.8 x 0.8 cm Grading of this nodule is as follows: Composition: Solid-2 points Echogenicity: Isoechoic-1 point Shape: Wider than taller-0 points Margin: Smooth-0 points Echogenic Foci: None-0 points Total Points for this nodule: 3 ACR Ti-Rads Category: 3 This TR 3 level nodule can be followed as it measures less than 2.5 cm. LYMPH NODES: There is no significant adenopathy. IMPRESSION: 1. Both small nodules in the left lobe can be followed. They do not qualify for ultrasound-guided FNA. 2. With respect to the right-sided nodules, 2 of these qualify for ultrasound- guided FNA as described above. Apparently this patient has had prior biopsies at outside institution. Please correlate with outside pathology report and radiology procedure report. 3. There is no significant lymphadenopathy. DATA REPOSITORY:
== END ==
LOC: DI 00:03
PROVIDERS: PCP Nurse Practitioner; Visit Provider Otolaryngology
DX: E04.2 Nontoxic multinodular goiter (principal)
CPT/HCPCS: 76536